=== PATIENT | male | born 1940 | race Caucasian/White ===

== ENCOUNTER 2020-01-16 13:25 | IRF | payer MEDICARE, SELFPAY ==
--- NOTE | ~2020-01-16 | XR_ITS ---
EXAMINATION: XR abdomen/kub 1V DATE: 01/23/2020 13:35 INDICATION: Abdominal pain. TECHNIQUE: A supine view of the abdomen was obtained. COMPARISON: None. FINDINGS: The rectum is distended and contains stool and contrast. There is contrast in diverticula o f the distal colon. The small bowel is normal in caliber. Wires overlying the chest and upper abdomen may be retained epicardial pacer wires. IMPRESSION: 1. Distended rectum containing stool. Reviewed, dictated and finalized at location A.
--- NOTE | 2020-01-16 13:59 | ADMGEN ---
Arrived via ambulance at 1325, alert with no complaints of pain of discomfort. This patient, Javier Nagy, was admitted to [facility] Room 219-02. Patient/family oriented to hospital policies and general routines including ID bracelet, bed and alarms, visiting hours, pain management, procedures, bathroom and other care routines, personal items, smoking policy, room service/diet, and visiting hours. Valuables list has been completed. Information on how to activate the Rapid Response Team has been discussed. Patient/Family are encouraged to report perceived risks to care and to ask questions if they do not understand what they are told or what they should do.
[2020-01-16 14:05] VITALS: BP 152/82; PULSE 74; RESP 20; TEMP 36; O2SAT 98; BMI 25.9
[2020-01-16] MEDS: ONDANSETRON HCL ODT 4 MG TABLET PO (15:11)
[2020-01-16 15:13] VITALS: BMI 25.9
[2020-01-16] MEDS: busPIRone HCL 5 MG TABLET PO (17:42)
[2020-01-16] MEDS: ATORVASTATIN 40 MG TABLET PO (20:01)
[2020-01-16 20:31] VITALS: BP 148/93; PULSE 64; RESP 20; TEMP 36.3; O2SAT 100
[2020-01-16 20:41] VITALS: O2SAT 94
[2020-01-17 05:09] LABS: Basophils Percent Auto 0.3 % (0.2-1.2); Eosinophils Absolute Auto 0.2 K/mm3 (0-0.3); Eosinophils Percent Auto 2.2 % (0-4.4); Hematocrit 44.2 % (42.0-52.0); Hemoglobin 14.7 g/dL (14.0-18.0); Immature Granulocyte Absolute 0.03 K/mm3 (0.00-0.031); Immature Granulocyte Percent A 0.3 % (0-0.5); Lymphocytes Absolute Auto 1.78 K/mm3 (0.9-3.2); Lymphocytes Percent Auto 18.8 % (18.3-44.2); Mean Corpuscular HGB Conc 33.3 g/dl (32-36); Mean Corpuscular Hemoglobin 31.7 pg (26-34); Mean Corpuscular Volume 95.3 fl (80-100); Mean Platelet Volume 11.9 fl (7.4-10.4); Monocytes Absolute Auto 1.4 K/mm3 (0.1-0.6); Monocytes Percent Auto 14.5 % (2.6-8.5); Neutrophils Percent Auto 63.9 % (45.5-73.1); Platelet Count Result 125 k/mm3 (150-375); Red Blood Count 4.64 M/mm3 (4.6-6.20); Red Cell Distribution Width 13.2 % (11.5-14.5); White Blood Count 9.5 K/mm3 (4.5-10.0)
[2020-01-17 05:22] LABS: Anion Gap 4 mmol/L (8-16); Blood Urea Nitrogen 16 mg/dL (9-20); Calcium 8.8 mg/dL (8.4-10.2); Carbon Dioxide 29 mmol/L (22-30); Chloride 103 mmol/L (98-107); Cholesterol 119 mg/dL (0-200); Estimated CRCL calculation 66 ml/min; Estimated Glomerular Filt Rate > 60; Glucose 124 mg/dL (75-110); HDL Direct 43 mg/dL; Potassium 3.7 mmol/L (3.4-5.0); Sodium 136 mmol/L (137-145); Triglycerides 56 mg/dL (<150)
[2020-01-17 05:33] LABS: LDL Cholesterol Direct 51 mg/dL
[2020-01-17 05:40] VITALS: BP 150/86; PULSE 68; RESP 18; TEMP 36.3; O2SAT 97
[2020-01-17] MEDS: ASPIRIN 325 MG TABLET PO (08:04)
[2020-01-17] MEDS: busPIRone HCL 5 MG TABLET PO ×2 (08:04→18:30)
[2020-01-17] MEDS: FINASTERIDE 5 MG TABLET PO (08:05)
--- NOTE | 2020-01-17 09:00 | WPDREHABHP ---
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 The patient is a 79-year-old right handed with prior medical history of atrial fibrillation, transient ischemic attack x2, severe aortic insufficiency, DVT, pulmonary embolism, osteoarthritis, sensory neuro hearing loss, cataracts and BPH presented to [facility] on January 14, 2020 via [facility] evacuation after being found down at 10:15 p.m. by police conducting a well check. The patient reported that he noticed this symptom onset at 8:30 a.m. while getting dressed. Patient reported his left side was weak and progress to the point that he could not move his left side. He attempted to leave the bathroom and fell, hitting his right eye were all, druze on the sink. He denies loss of consciousness and remained on the floor until he was found by emergency personnel. On arrival to the emergency the patient was hypertensive and NIHSS was 18. CT head showed no acute intracranial abnormality. CTA was negative for large vessel occlusion. He was not a candidate for tPA as he presented outside the window and with no large vessel occlusion he was not a candidate for thrombectomy either. MRI revealed multifocal acute infarcts in the right middle cerebral artery territory primarily involving the posterior right hines radiata and posterior limb of the internal capsule. There was also location managed FLAIR changes indicating a high risk are high risk for hemorrhagic conversion. TG in May showed an ejection fraction of 55 to 60%. He was continue on aspirin as soon a statin and was changed to add atorvastatin. Physical examination continues to reveal left-sided hemiparesis, decreased gross motor control, a decrease safety precautions or awareness, left facial droop and impaired balance. The patient was discharged to rehab on Lovenox for DVT prophylaxis however I see the patient is already started on Eliquis 5 milligram b.i.d. and the aspirin will discontinue on January 19, 2020 along with the other medications. The patient has not traveled outside the [place] or had contact with someone who is ill that has traveled outside the [place] in the past 21 days. Patient has not traveled to an area of the [place] that is experiencing no transmission of the Coronavirus and has not had close personal contact with anyone that has. The patient does not have a fever. The patient is not experiencing lower respiratory illness symptoms. Therapy was initiated at the acute care facility and the patient transferred to us from [facility] on January 16, 2020 on FALLS OR SURGERIES: The patient has had no major surgeries in the 100 days prior to admission. They had no falls in the past year. They had no falls with injury in the past year. PAST MEDICAL HISTORY: atrial fibrillation patient was on where of warfarin which has been switch her to Eliquis, transient ischemic attacks x2, severe aortic insufficiency (status post AVR and LA appendage ligation 2017) close DVT 2015, P right lower lobe 2017, migraines, osteoarthritis, sensory neural hearing loss cataracts and BPH PAST SURGICAL HISTORY: cardiac catheterization July 2017, bilateral carpal tunnel release 1989, loss copy April of 2016, repeat colonoscopy in October of 2019, trigger finger release December 2016, right hernia repair, ear surgery in 1969, bilateral total knee arthroplasty 1999 and TTE July of 2017 SOCIAL HISTORY: patient is lives alone. A never smoker rare alcohol use no illicit use of drugs lives an active lifestyle FAMILY HISTORY: esophageal cancer, lung cancer, coronary artery disease, throat cancer, myocardia
[2020-01-17 13:43] VITALS: BMI 25.9
[2020-01-17 14:00] VITALS: BP 127/78; PULSE 72; RESP 18; TEMP 36.8; O2SAT 96
[2020-01-17] MEDS: HYDROcodone/acetaminophen (*CRX) 5-325 MG TABLET 1 TAB PO (15:03)
[2020-01-17] MEDS: ATORVASTATIN 40 MG TABLET PO (19:59)
[2020-01-17 21:07] VITALS: BP 133/89; PULSE 63; RESP 20; TEMP 36.4; O2SAT 100
[2020-01-18 05:17] VITALS: BP 179/86; PULSE 60; RESP 18; TEMP 36.1; O2SAT 100
[2020-01-18] MEDS: ACETAMINOPHEN 325 MG TABLET 650 MG PO ×3 (07:39→23:07)
[2020-01-18] MEDS: ASPIRIN 325 MG TABLET PO (08:41)
[2020-01-18] MEDS: busPIRone HCL 5 MG TABLET PO ×2 (08:41→17:30)
[2020-01-18] MEDS: FINASTERIDE 5 MG TABLET PO (08:41)
[2020-01-18 09:14] VITALS: O2SAT 94
--- NOTE | 2020-01-18 10:10 | WPDNEURORHBP ---
Subjective Date/time seen: 01/18/20 10:10 Interval history: this 79-year-old gentleman is here after having had the right middle cerebral artery stroke related to most likely atrial fibrillation with significant left-sided hemiplegia left-sided nathalie sensory deficit and also probably a mild subtle but present visual field defect on the side he also has some cognitive dysfunction with short-term memory loss and repetitious asking the questions but quite pleasant denies any headache nausea vomiting chest pain shortness of breath fever chills sore throat Review of Systems Review of Systems: All systems reviewed & are unremarkable except as noted in HPI and below Functional Status Transfers Ability Ability to Transfer In/Out of Chair: Maximum Assistance X 2 Exam Const: General: comfortable and no acute distress HENMT: General nose exam: Normal nares present Mouth: Yes moist mucous membranes Eyes: General: appearance normal, both eyes and all related structures Neck: Neck: supple and no JVD Resp: Effort & Inspection: normal respiratory effort Auscultation: clear to auscultation bilaterally Cardio: Rate: regular rate Rhythm: regular rhythm GI: GI Palp: Yes Soft to palpation Auscultation: normal bowel sounds Skin: General skin exam: normal color and no rashes or lesions noted Neuro: Other: patient is awake and alert will oriented however clearly has cognitive deficits had left-sided hemiplegia and subtle left-sided visual field defect Extrem: General: normal to inspection Psych: Other: except the cognitive deficit the patient's affect is normal Objective Data Vital Signs Vital Signs: Vital Signs - 24 hr 01/17/20 14:00 01/17/20 21:07 01/18/20 05:17 Temperature 36.8 C 36.4 C 36.1 C L Pulse Rate 72 63 60 Respiratory Rate 18 18 Blood Pressure 127/78 133/89 179/86 H Pulse Oximetry 96 100 100 01/18/20 09:14 Temperature Pulse Rate Respiratory Rate Blood Pressure Pulse Oximetry 94 Intake/Output Intake/Output: Intake & Output 01/15/20 01/16/20 01/17/20 01/18/20 23:59 23:59 23:59 23:59 Intake Total 240 720 240 Balance 240 720 240 Meds/Results Medications: Active Medications Generic Name Dose Route Start Last Admin Trade Name Freq PRN Reason Stop Dose Admin Acetaminophen 650 mg 01/16/20 14:42 01/18/20 07:39 Tylenol Tablet PO 650 mg Q6H PRN Administration Pain 1-3 Hydrocodone Bitart/Acetaminophen 1 tab 01/16/20 14:42 01/17/20 15:03 [place] 5-325 Mg PO 1 tab Q6H PRN Administration Pain, Moderate Apixaban 5 mg 01/20/20 09:00 Eliquis PO BID ARSENIO Aspirin 325 mg 01/16/20 09:00 01/18/20 08:41 Aspirin PO 01/19/20 09:01 325 mg DAILY ARSENIO Administration Atorvastatin Calcium 40 mg 01/16/20 21:00 01/17/20 19:59 Lipitor PO 40 mg HS ARSENIO Administration Buspirone HCl 5 mg 01/16/20 17:00 01/18/20 08:41 Buspar PO 5 mg BID ARSENIO Administration Diltiazem HCl 120 mg 01/17/20 09:00 01/18/20 08:41 Cardizem Cd PO 120 mg DAILY ARSENIO Administration Finasteride 5 mg 01/17/20 09:00 01/18/20 08:41 Proscar PO 5 mg DAILY ARSENIO Administration Ondansetron HCl 4 mg 01/16/20 14:45 01/16/20 15:11 Zofran Odt PO 4 mg Q6H PRN Administration Nausea And Vomiting Progress Note: A&P Assessment and Plan (1) S/P left atrial appendage ligation: Code(s): Z98.890 - Other specified postprocedural states Status: Acute (2) S/P AVR: Code(s): Z95.2 - Presence of prosthetic heart valve Status: Acute (3) Atrial fibrillation: Code(s): I48.91 - Unspecified atrial fibrillation Status: Acute (4) Left hemiparesis: Code(s): G81.94 - Hemiplegia, unspecified affecting left nondominant side Status: Acute (5) Stroke: Code(s): I63.9 - Cerebral infarction, unspecified Status: Acute Additional Plan we will continue the physical therapy of compression th
--- NOTE | 2020-01-18 13:10 | RPD ---
INDIVIDUALIZED PLAN OF CARE FOR Javier Nagy Brief Synthesis of Pre-Admission Screen, Post-Admission Evaluation and Therapy Evaluations: The patient presents to rehab with a right MCA stroke. Comorbidities include CVA, TIA, Migraines, Hypertension, overactive bladder, benign prostatic hyperplasia, CHF with valve replacement 2018, atrial fibrillation, arthritis, and aortic valve disorder. The complexity of the patient's medical management, nursing, and therapy needs require an inpatient rehab hospital stay with a physician-led interdisciplinary team approach. The patient?s needs will be best met in an intensive program vs. at a lower level of care. The patient requires physician services for neurology services, medical oversight, and coordination of care. Emotional needs will be monitored as depression is a common sequelae of stroke. The patient requires nursing services for frequent neuro checks, anticoagulation therapy, medication management and education, pressure relief and skin care management, monitoring of labs, and fall/safety precautions. Deficits include:ADLs, Balance, Cognition, Endurance, Family Training/Education, Mobility, Pain Management, ROM, Safety, and Strength. Mica Splitter/Case Management for: Discharge Planning and Patient/Family Counseling Physical Therapy: 5 days per week for 60 minutes. Treatments may include: Therapeutic Exercise, Gait Training, Neuromuscular Re-education, Transfer Training, Community Reintegration, Bed Mobility, Patient/Family Education, Wheelchair Mobility Group Therapy/Concurrent Therapy Rationales: -Improve attention span during functional activities in a distracted environment. -Enhance problem solving and/or adequate judgment skills during functional activities in a distracted environment. -Promote increased safety awareness in a distracted environment to reduce fall risk with functional tasks, transfers, and ambulation to allow a more safe, self-sufficient return to the home environment. -Improve dynamic balance skills to promote safety and independence with functional activities in a distracted environment for maximum gain. Occupational Therapy: 5 days per week for 60 minutes. Treatments may include: Therapeutic Exercise, Therapeutic Activity, Cognitive Training, Self-Care Transfer Training, Community Reintegration, Home Management, Patient/Family Education, Wheelchair Mobility Training, Energy Conservation Training Group Therapy/Concurrent Therapy Rationales: -Allow therapist to observe and teach generalization and carry-over of skills learned in individual therapy. -Enhance problem solving and sequencing skills during therapeutic activities in a distracted environment. -Promote increased safety awareness in a realistic setting to reduce fall risk with functional tasks due to visual and verbal distractions. -Increase functional level with ADLs, ADL transfers and use of adaptive equipment through therapeutic activities with others while promoting safety to allow a more safe, self-sufficient return home. Speech Therapy: 5 days per week for 60 minutes. Treatments may include: Dysphasia Therapy, Speech/Language/Communication Therapy, Cognitive Training, Patient/Family Education Group Therapy/Concurrent Therapy - Rationale: -Allow therapist to observe and teach generalization and carry-over of skills learned in individual therapy. -Improve comprehension skills with complex or abstract ideas through discussion in a realistic setting. -Enhance problem solving skills with complex issues during activities in a distracted environment. -Promote increased memory skills and concentration in a distracted environment for a safe transition home. -Improve attention and focus with language/communication skills in a realistic and supportive therapeutic setting. -Allow for practice of expression of basic needs and ideas through functional activities with others. Medical Prognosis: Good Anticipated Length of Stay: 12 days Reha
[2020-01-18 14:00] VITALS: BP 148/92; PULSE 68; RESP 16; TEMP 36.6; O2SAT 100
[2020-01-18] MEDS: ATORVASTATIN 40 MG TABLET PO (20:25)
[2020-01-18 22:00] VITALS: BP 144/88; PULSE 69; RESP 16; TEMP 36.3; O2SAT 97
[2020-01-18] MEDS: ONDANSETRON HCL ODT 4 MG TABLET PO (23:00)
[2020-01-19] VITALS (7 sets, daily range): BP systolic 124–142; BP diastolic 72–79; PULSE 62–71; RESP 16–20; TEMP 36.3–36.6; O2SAT 94–98
[2020-01-19] MEDS: HYDROcodone/acetaminophen (*CRX) 5-325 MG TABLET 1 TAB PO (01:24)
[2020-01-19] MEDS: ONDANSETRON HCL ODT 4 MG TABLET PO ×2 (05:40→21:38)
[2020-01-19] MEDS: FINASTERIDE 5 MG TABLET PO (08:38)
[2020-01-19] MEDS: polyethylene glycoL 3350 17 GM POWD.PACK PO (08:38)
[2020-01-19] MEDS: ASPIRIN 325 MG TABLET PO (08:38)
[2020-01-19] MEDS: busPIRone HCL 5 MG TABLET PO ×2 (08:39→17:41)
[2020-01-19] MEDS: MELATONIN 5 MG TABLET PO (20:20)
[2020-01-19] MEDS: ATORVASTATIN 40 MG TABLET PO (20:20)
[2020-01-20 05:16] VITALS: BP 131/75; PULSE 65; RESP 18; TEMP 36.6; O2SAT 100
[2020-01-20] MEDS: APIXABAN 5 MG TABLET PO ×2 (08:37→17:13)
[2020-01-20] MEDS: polyethylene glycoL 3350 17 GM POWD.PACK PO (08:37)
[2020-01-20] MEDS: busPIRone HCL 5 MG TABLET PO ×2 (08:37→17:13)
[2020-01-20] MEDS: FINASTERIDE 5 MG TABLET PO (08:37)
[2020-01-20 08:44] VITALS: PULSE 64; RESP 18; O2SAT 100
[2020-01-20] MEDS: ONDANSETRON HCL ODT 4 MG TABLET PO (11:08)
[2020-01-20 13:00] VITALS: BP 119/76; PULSE 68; O2SAT 92
--- NOTE | 2020-01-20 17:14 | WPDNEURORHBP ---
Subjective Date/time seen: 01/20/20 17:14 Interval history: This 79-year-old gentleman is here after having had stroke and the left-sided almost hemiplegia which is slightly improving the complains of diplopia earlier in the morning which has resolved without any headache nausea vomiting chest pain shortness of breath fever chills sore throat is also complaining of insomnia Review of Systems Review of Systems: All systems reviewed & are unremarkable except as noted in HPI and below Functional Status Transfers Ability Ability to Transfer In/Out of Chair: Maximum Assistance X 2 Exam Const: General: comfortable and no acute distress HENMT: General nose exam: Normal nares present Mouth: Yes moist mucous membranes Eyes: General: appearance normal, both eyes and all related structures Neck: Neck: supple and no JVD Resp: Effort & Inspection: normal respiratory effort Auscultation: clear to auscultation bilaterally Cardio: Rate: regular rate Rhythm: regular rhythm GI: GI Palp: Yes Soft to palpation Auscultation: normal bowel sounds Skin: General skin exam: normal color and no rashes or lesions noted Neuro: Other: patient remains awake alert well oriented not any distress left-sided hemiplegia slowly improving particularly the left leg he has moved will able to move across the bed there is no sign of extraocular movement disturbance Extrem: General: normal to inspection Psych: Mental Status: mental status grossly normal Objective Data Vital Signs Vital Signs: Vital Signs - 24 hr 01/19/20 20:00 01/19/20 21:25 01/19/20 21:39 Temperature 36.4 C L Pulse Rate 70 Respiratory Rate 20 Blood Pressure 126/78 Pulse Oximetry 98 96 98 01/20/20 05:16 01/20/20 08:44 01/20/20 13:00 Temperature 36.6 C Pulse Rate 65 64 68 Respiratory Rate 18 18 Blood Pressure 131/75 119/76 Pulse Oximetry 100 100 92 Intake/Output Intake/Output: Intake & Output 01/17/20 01/18/20 01/19/20 01/20/20 23:59 23:59 23:59 23:59 Intake Total 720 720 600 480 Balance 720 720 600 480 Meds/Results Medications: Active Medications Generic Name Dose Route Start Last Admin Trade Name Freq PRN Reason Stop Dose Admin Acetaminophen 650 mg 01/16/20 14:42 01/18/20 23:07 Tylenol Tablet PO 650 mg Q6H PRN Administration Pain 1-3 Hydrocodone Bitart/Acetaminophen 1 tab 01/16/20 14:42 01/19/20 01:24 [place] 5-325 Mg PO 1 tab Q6H PRN Administration Pain, Moderate Apixaban 5 mg 01/20/20 09:00 01/20/20 17:13 Eliquis PO 5 mg BID ARSENIO Administration Atorvastatin Calcium 40 mg 01/16/20 21:00 01/19/20 20:20 Lipitor PO 40 mg HS ARSENIO Administration Buspirone HCl 5 mg 01/16/20 17:00 01/20/20 17:13 Buspar PO 5 mg BID ARSENIO Administration Diltiazem HCl 120 mg 01/17/20 09:00 01/20/20 08:37 Cardizem Cd PO 120 mg DAILY ARSENIO Administration Finasteride 5 mg 01/17/20 09:00 01/20/20 08:37 Proscar PO 5 mg DAILY ARSENIO Administration Melatonin 5 mg 01/19/20 21:00 01/19/20 20:20 Melatonin PO 5 mg HS ARSENIO Administration Ondansetron HCl 4 mg 01/16/20 14:45 01/20/20 11:08 Zofran Odt PO 4 mg Q6H PRN Administration Nausea And Vomiting Polyethylene Glycol 17 gm 01/19/20 09:00 01/20/20 08:37 Miralax PO 17 gm QAM ARSENIO Administration Progress Note: A&P Assessment and Plan (1) S/P left atrial appendage ligation: Code(s): Z98.890 - Other specified postprocedural states Status: Acute (2) S/P AVR: Code(s): Z95.2 - Presence of prosthetic heart valve Status: Acute (3) Atrial fibrillation: Code(s): I48.91 - Unspecified atrial fibrillation Status: Acute (4) Left hemiparesis: Code(s): G81.94 - Hemiplegia, unspecified affecting left nondominant side Status: Acute (5) Stroke: Code(s): I63.9 - Cerebral infarction, unspecified Status: Acute Additional Plan we will phyllis
[2020-01-20 20:00] VITALS: O2SAT 94
[2020-01-20] MEDS: ATORVASTATIN 40 MG TABLET PO (20:07)
[2020-01-20] MEDS: MELATONIN 5 MG TABLET PO (20:07)
[2020-01-20] MEDS: ACETAMINOPHEN 325 MG TABLET 650 MG PO (21:21)
[2020-01-20 21:35] VITALS: BP 111/79; PULSE 72; RESP 16; TEMP 36.2; O2SAT 94
[2020-01-21 05:47] VITALS: BP 133/65; PULSE 62; RESP 16; TEMP 36.1; O2SAT 98
[2020-01-21] MEDS: ONDANSETRON HCL ODT 4 MG TABLET PO (05:52)
[2020-01-21] MEDS: busPIRone HCL 5 MG TABLET PO ×2 (08:20→16:06)
[2020-01-21] MEDS: APIXABAN 5 MG TABLET PO ×2 (08:20→16:06)
[2020-01-21] MEDS: polyethylene glycoL 3350 17 GM POWD.PACK PO (08:20)
[2020-01-21] MEDS: FINASTERIDE 5 MG TABLET PO (08:20)
--- NOTE | 2020-01-21 10:19 | WPDNEURORHBP ---
Subjective Date/time seen: 01/21/20 10:19 79 years old admitted to the acute rehab with left hemiplegia along with diplopia at this particular time has no specific complaints except he has difficulties in moving the bowels though he is receiving MiraLax scheduled. Review of Systems Review of Systems: All systems reviewed & are unremarkable except as noted in HPI and below Functional Status Transfers Ability Ability to Transfer In/Out of Chair: Maximum Assistance X 2 Exam Narrative: Exam Narrative: on examination today he is awake alert with normal and full speech in no obvious acute distress ear nose throat examination normal with no evidence of obvious oral or nasal drainage eyes normal neck is supple with full range of motions respiration clear with no rhonchi or crepitations heart regular with no murmur abdomen is soft with normal bowel sounds no tenderness neurological examination reveals him to be awake alert with obvious left-sided hemiplegia hyperreflexia upgoing left plantar response at this stage there is no evidence of extraocular movements abnormalities Objective Data Vital Signs Vital Signs: Vital Signs - 24 hr 01/20/20 13:00 01/20/20 20:00 01/20/20 21:35 Temperature 36.2 C L Pulse Rate 68 72 Respiratory Rate 16 Blood Pressure 119/76 111/79 Pulse Oximetry 92 94 94 01/21/20 05:47 Temperature 36.1 C L Pulse Rate 62 Respiratory Rate 16 Blood Pressure 133/65 Pulse Oximetry 98 Intake/Output Intake/Output: Intake & Output 01/18/20 01/19/20 01/20/20 01/21/20 23:59 23:59 23:59 23:59 Intake Total 720 600 720 240 Balance 720 600 720 240 Meds/Results Medications: Active Medications Generic Name Dose Route Start Last Admin Trade Name Freq PRN Reason Stop Dose Admin Acetaminophen 650 mg 01/16/20 14:42 01/20/20 21:21 Tylenol Tablet PO 650 mg Q6H PRN Administration Pain 1-3 Hydrocodone Bitart/Acetaminophen 1 tab 01/16/20 14:42 01/19/20 01:24 [place] 5-325 Mg PO 1 tab Q6H PRN Administration Pain, Moderate Apixaban 5 mg 01/20/20 09:00 01/21/20 08:20 Eliquis PO 5 mg BID ARSENIO Administration Atorvastatin Calcium 40 mg 01/16/20 21:00 01/20/20 20:07 Lipitor PO 40 mg HS ARSENIO Administration Buspirone HCl 5 mg 01/16/20 17:00 01/21/20 08:20 Buspar PO 5 mg BID ARSENIO Administration Diltiazem HCl 120 mg 01/17/20 09:00 01/21/20 08:19 Cardizem Cd PO 120 mg DAILY ARSENIO Administration Finasteride 5 mg 01/17/20 09:00 01/21/20 08:20 Proscar PO 5 mg DAILY ARSENIO Administration Melatonin 5 mg 01/19/20 21:00 01/20/20 20:07 Melatonin PO 5 mg HS ARSENIO Administration Ondansetron HCl 4 mg 01/16/20 14:45 01/21/20 05:52 Zofran Odt PO 4 mg Q6H PRN Administration Nausea And Vomiting Polyethylene Glycol 17 gm 01/19/20 09:00 01/21/20 08:20 Miralax PO 17 gm QAM ARSENIO Administration Progress Note: A&P Assessment and Plan (1) S/P left atrial appendage ligation: Code(s): Z98.890 - Other specified postprocedural states Status: Acute (2) S/P AVR: Code(s): Z95.2 - Presence of prosthetic heart valve Status: Acute (3) Atrial fibrillation: Code(s): I48.91 - Unspecified atrial fibrillation Status: Acute (4) Left hemiparesis: Code(s): G81.94 - Hemiplegia, unspecified affecting left nondominant side Status: Acute (5) Stroke: Code(s): I63.9 - Cerebral infarction, unspecified Status: Acute Additional Plan management is being continued as such.
[2020-01-21 14:00] VITALS: BP 123/88; PULSE 75; RESP 18; TEMP 36.5; O2SAT 97
[2020-01-21] MEDS: MELATONIN 5 MG TABLET PO (20:33)
[2020-01-21] MEDS: ATORVASTATIN 40 MG TABLET PO (20:33)
[2020-01-21 22:00] VITALS: BP 131/81; PULSE 65; RESP 18; TEMP 36.2; O2SAT 97
[2020-01-22 06:00] VITALS: BP 162/89; PULSE 84; RESP 18; TEMP 36.6; O2SAT 93
[2020-01-22] MEDS: polyethylene glycoL 3350 17 GM POWD.PACK PO (09:25)
[2020-01-22] MEDS: FINASTERIDE 5 MG TABLET PO (09:25)
[2020-01-22] MEDS: busPIRone HCL 5 MG TABLET PO ×2 (09:25→17:06)
[2020-01-22] MEDS: APIXABAN 5 MG TABLET PO ×2 (09:25→17:06)
--- NOTE | 2020-01-22 13:07 | PCDIET ---
Nutrition Follow-Up Complete: Nutrition Diagnosis: Predicted suboptimal oral intake related to recent CVA as evidenced by patient statements, reported decreased appetite. Nutrition Goal: Patient to consume 75% of meals or greater. Goal met. Average intake from last review was 77% of recorded meals on regular diet. Patient eating light lunch of soup and crackers due to c/o constipation. Reports refusing magnesium citrate. RN has order for enema. Last recorded weight is 86.8 kg. Recommend obtaining new weight. Bowel Motility: Last documented BM on 01/17/20. Labs Reviewed: No new labs available. Meds Noted: [place], Miralax, Zofran Additional Notes: Abrasions noted, but no open wounds documented. Will continue to monitor with same goal. Nutrition Monitoring and Evaluation: Follow up in 5 days.
[2020-01-22 14:00] VITALS: BP 137/76; PULSE 86; RESP 18; TEMP 36.6; O2SAT 97
--- NOTE | 2020-01-22 14:38 | WPDNEURORHBP ---
Subjective Date/time seen: 01/22/20 14:38 Interval history: this 79-year-old gentleman is here with stroke with left-sided almost hemiplegia he is complaining of constipation and we have to change different medication according to his need otherwise is stable denies any headache nausea vomiting chest pain shortness of breath fever chills sore throat Review of Systems Review of Systems: All systems reviewed & are unremarkable except as noted in HPI and below Functional Status Ambulation Ability Ambulation Assistive Devices: Parallel Bars Transfers Ability Ability to Transfer In/Out of Chair: Maximum Assistance X 2 Exam Const: General: comfortable and no acute distress HENMT: General nose exam: Normal nares present Mouth: Yes moist mucous membranes Eyes: General: appearance normal, both eyes and all related structures Neck: Neck: supple and no JVD Resp: Effort & Inspection: normal respiratory effort Auscultation: clear to auscultation bilaterally Cardio: Rate: regular rate Rhythm: regular rhythm GI: GI Palp: Yes Soft to palpation Auscultation: normal bowel sounds Skin: General skin exam: normal color and no rashes or lesions noted Neuro: Other: patient is awake alert well oriented denies any headache nausea vomiting chest pain shortness of breath left-sided hemiplegia has some improvement otherwise overall picture is stable Extrem: General: normal to inspection Psych: Mental Status: mental status grossly normal Objective Data Vital Signs Vital Signs: Vital Signs - 24 hr 01/21/20 22:00 01/22/20 06:00 01/22/20 14:00 Temperature 36.2 C L 36.6 C 36.6 C Pulse Rate 65 84 86 Respiratory Rate 18 18 18 Blood Pressure 131/81 162/89 H 137/76 Pulse Oximetry 97 93 97 Intake/Output Intake/Output: Intake & Output 01/19/20 01/20/20 01/21/20 01/22/20 23:59 23:59 23:59 23:59 Intake Total 600 720 720 480 Balance 600 720 720 480 Meds/Results Medications: Active Medications Generic Name Dose Route Start Last Admin Trade Name Freq PRN Reason Stop Dose Admin Acetaminophen 650 mg 01/16/20 14:42 01/20/20 21:21 Tylenol Tablet PO 650 mg Q6H PRN Administration Pain 1-3 Hydrocodone Bitart/Acetaminophen 1 tab 01/16/20 14:42 01/19/20 01:24 [place] 5-325 Mg PO 1 tab Q6H PRN Administration Pain, Moderate Apixaban 5 mg 01/20/20 09:00 01/22/20 09:25 Eliquis PO 5 mg BID ARSENIO Administration Atorvastatin Calcium 40 mg 01/16/20 21:00 01/21/20 20:33 Lipitor PO 40 mg HS ARSENIO Administration Buspirone HCl 5 mg 01/16/20 17:00 01/22/20 09:25 Buspar PO 5 mg BID ARSENIO Administration Diltiazem HCl 120 mg 01/17/20 09:00 01/22/20 09:25 Cardizem Cd PO 120 mg DAILY ARSENIO Administration Finasteride 5 mg 01/17/20 09:00 01/22/20 09:25 Proscar PO 5 mg DAILY ARSENIO Administration Lactulose 30 gm 01/22/20 13:28 Lactulose PO QAM PRN Constipation Melatonin 5 mg 01/19/20 21:00 01/21/20 20:33 Melatonin PO 5 mg HS ARSENIO Administration Ondansetron HCl 4 mg 01/16/20 14:45 01/21/20 05:52 Zofran Odt PO 4 mg Q6H PRN Administration Nausea And Vomiting Polyethylene Glycol 17 gm 01/19/20 09:00 01/22/20 09:25 Miralax PO 17 gm QAM ARSENIO Administration Progress Note: A&P Assessment and Plan (1) Constipation: Code(s): K59.00 - Constipation, unspecified Status: Acute (2) S/P left atrial appendage ligation: Code(s): Z98.890 - Other specified postprocedural states Status: Acute (3) S/P AVR: Code(s): Z95.2 - Presence of prosthetic heart valve Status: Acute (4) Atrial fibrillation: Code(s): I48.91 - Unspecified atrial fibrillation Status: Acute (5) Left hemiparesis: Code(s): G81.94 - Hemiplegia, unspecified affecting left nondominant side Status: Acute (6) Stroke: Code(s): I63.9 - Cerebral infarction, unspecified Status: Acu
[2020-01-22] MEDS: LACTULOSE 20 GM/30 ML UDC 30 GM PO (15:36)
[2020-01-22] MEDS: ONDANSETRON HCL ODT 4 MG TABLET PO (17:19)
[2020-01-22 20:00] VITALS: PULSE 86; RESP 18; O2SAT 97
[2020-01-22] MEDS: MELATONIN 5 MG TABLET PO (20:14)
[2020-01-22] MEDS: ATORVASTATIN 40 MG TABLET PO (20:14)
[2020-01-22 22:00] VITALS: BP 136/98; PULSE 79; RESP 20; TEMP 36.3; O2SAT 93
[2020-01-23] MEDS: ACETAMINOPHEN 325 MG TABLET 650 MG PO ×2 (03:10→17:27)
[2020-01-23 05:46] VITALS: BP 137/71; PULSE 73; RESP 20; TEMP 36.4; O2SAT 94
[2020-01-23] MEDS: polyethylene glycoL 3350 17 GM POWD.PACK PO (09:08)
[2020-01-23] MEDS: FINASTERIDE 5 MG TABLET PO (09:08)
[2020-01-23] MEDS: busPIRone HCL 5 MG TABLET PO ×2 (09:08→17:28)
[2020-01-23] MEDS: LACTULOSE 20 GM/30 ML UDC 30 GM PO (09:08)
[2020-01-23] MEDS: APIXABAN 5 MG TABLET PO ×2 (09:08→17:28)
[2020-01-23 10:59] LABS: Add Urine Microscopic? YES; Appearance Urine Clear (Clear); Bilirubin Urine Negative (Negative); Blood Urine Negative (Negative); Color Urine Yellow (Yellow); Glucose Urine UA Negative (Negative); Ketones Urine Negative (Negative); Leukocyte Esterase Ur Negative LEU/UL (Negative); Mucus Urine Few /lpf; Nitrate Urine Negative (Negative); Protein Urine Negative (Negative); Specific Grav Ur 1.023 (1.001-1.035)
--- NOTE | 2020-01-23 11:36 | WPDNEURORHBP ---
Subjective Date/time seen: 01/23/20 11:36 Interval history: this 79-year-old gentleman is here status post stroke with left-sided significant hemiparesis patient did urinate today and it has been sent for urinalysis with reflex culture has been complaining of constipation and is asking for a suppository he certainly has is own way of dealing with his constipation at times refusing the enema times refusing the therapy we recommend in any event I will abide by his vision give him Dulcolax suppository to see if it makes a difference Beside the constipation the patient denies any headache nausea vomiting chest pain shortness of breath fever chills sore throat Review of Systems Review of Systems: All systems reviewed & are unremarkable except as noted in HPI and below Functional Status Ambulation Ability Ambulation Assistive Devices: Parallel Bars Transfers Ability Ability to Transfer In/Out of Chair: Maximum Assistance X 2 Exam Const: General: comfortable and no acute distress HENMT: General nose exam: Normal nares present Mouth: Yes moist mucous membranes Eyes: General: appearance normal, both eyes and all related structures Neck: Neck: supple and no JVD Resp: Effort & Inspection: normal respiratory effort Auscultation: clear to auscultation bilaterally Cardio: Rate: regular rate Rhythm: regular rhythm GI: GI Palp: Yes Soft to palpation Auscultation: normal bowel sounds Skin: General skin exam: normal color and no rashes or lesions noted Neuro: Other: patient is awake alert well oriented time place and person has significant weakness of the left upper and the lower extremity which is slowly improving however Extrem: General: normal to inspection Psych: Mental Status: mental status grossly normal Objective Data Vital Signs Vital Signs: Vital Signs - 24 hr 01/22/20 14:00 01/22/20 20:00 01/22/20 22:00 Temperature 36.6 C 36.3 C L Pulse Rate 86 86 79 Respiratory Rate 18 18 20 Blood Pressure 137/76 136/98 H Pulse Oximetry 97 97 93 01/23/20 05:46 Temperature 36.4 C Pulse Rate 73 Respiratory Rate 20 Blood Pressure 137/71 Pulse Oximetry 94 Intake/Output Intake/Output: Intake & Output 01/20/20 01/21/20 01/22/20 01/23/20 23:59 23:59 23:59 23:59 Intake Total 720 720 720 Balance 720 720 720 Meds/Results Medications: Active Medications Generic Name Dose Route Start Last Admin Trade Name Andrea PRN Reason Stop Dose Admin Acetaminophen 650 mg 01/16/20 14:42 01/23/20 03:10 Tylenol Tablet PO 650 mg Q6H PRN Administration Pain 1-3 Hydrocodone Bitart/Acetaminophen 1 tab 01/16/20 14:42 01/19/20 01:24 [place] 5-325 Mg PO 1 tab Q6H PRN Administration Pain, Moderate Apixaban 5 mg 01/20/20 09:00 01/23/20 09:08 Eliquis PO 5 mg BID ARSENIO Administration Atorvastatin Calcium 40 mg 01/16/20 21:00 01/22/20 20:14 Lipitor PO 40 mg HS ARSENIO Administration Buspirone HCl 5 mg 01/16/20 17:00 01/23/20 09:08 Buspar PO 5 mg BID ARSENIO Administration Diltiazem HCl 120 mg 01/17/20 09:00 01/23/20 09:08 Cardizem Cd PO 120 mg DAILY ARSENIO Administration Finasteride 5 mg 01/17/20 09:00 01/23/20 09:08 Proscar PO 5 mg DAILY ARSENIO Administration Lactulose 30 gm 01/22/20 13:28 01/23/20 09:08 Lactulose PO 30 gm QAM PRN Administration Constipation Melatonin 5 mg 01/19/20 21:00 01/22/20 20:14 Melatonin PO 5 mg HS ARSENIO Administration Ondansetron HCl 4 mg 01/16/20 14:45 01/22/20 17:19 Zofran Odt PO 4 mg Q6H PRN Administration Nausea And Vomiting Polyethylene Glycol 17 gm 01/19/20 09:00 01/23/20 09:08 Miralax PO 17 gm QAM ARSENIO Administration Labs Labs: Laboratory Results - last 24 hr 01/23/20 10:34 Urine Color Yellow Urine Appearance Clear Urine pH 5.0 Ur Specific [place] 1.023 Urine Protein Negative Urine Glucose (UA) Negative Urine Ketones Negative Ur Blood (Man) Ne
[2020-01-23] MEDS: BISACODYL 10 MG SUPPOSITORY RECTAL (13:21)
[2020-01-23 14:00] VITALS: BP 151/78; PULSE 95; RESP 18; TEMP 35.4; O2SAT 90
--- NOTE | 2020-01-23 15:23 | PC.NURSE ---
Had large amount of stool in rectum per KUB; and also received 1 time dose of suppository; having cramping from earlier medications. Put on toilet because of no success on bedpan and was immediately able to have very xxxlarge BM and stated felt much better.
[2020-01-23 20:00] VITALS: O2SAT 98
[2020-01-23 22:00] VITALS: BP 116/77; PULSE 76; RESP 20; TEMP 36.6; O2SAT 98
[2020-01-23] MEDS: MELATONIN 5 MG TABLET PO (22:05)
[2020-01-23] MEDS: DOCUSATE SODIUM 100 MG CAPSULE PO (22:05)
[2020-01-23] MEDS: ATORVASTATIN 40 MG TABLET PO (22:05)
[2020-01-24 05:20] LABS: Basophils Absolute Auto 0.1 K/mm3 (0.0-0.1); Basophils Percent Auto 0.6 % (0.2-1.2); Eosinophils Absolute Auto 0.3 K/mm3 (0-0.3); Eosinophils Percent Auto 3.2 % (0-4.4); Hematocrit 40.7 % (42.0-52.0); Hemoglobin 13.6 g/dL (14.0-18.0); Immature Granulocyte Absolute 0.03 K/mm3 (0.00-0.031); Immature Granulocyte Percent A 0.3 % (0-0.5); Lymphocytes Absolute Auto 2.58 K/mm3 (0.9-3.2); Lymphocytes Percent Auto 25.6 % (18.3-44.2); Mean Corpuscular HGB Conc 33.4 g/dl (32-36); Mean Corpuscular Hemoglobin 31.1 pg (26-34); Mean Corpuscular Volume 93.1 fl (80-100); Mean Platelet Volume 11.6 fl (7.4-10.4); Monocytes Absolute Auto 1.1 K/mm3 (0.1-0.6); Monocytes Percent Auto 11.1 % (2.6-8.5); Neutrophils Percent Auto 59.2 % (45.5-73.1); Platelet Count Result 198 k/mm3 (150-375); Red Blood Count 4.37 M/mm3 (4.6-6.20); Red Cell Distribution Width 12.5 % (11.5-14.5); White Blood Count 10.1 K/mm3 (4.5-10.0)
[2020-01-24 05:34] LABS: Anion Gap 4 mmol/L (8-16); Blood Urea Nitrogen 18 mg/dL (9-20); Calcium 9.2 mg/dL (8.4-10.2); Carbon Dioxide 32 mmol/L (22-30); Chloride 101 mmol/L (98-107); Estimated CRCL calculation 60 ml/min; Estimated Glomerular Filt Rate > 60; Glucose 104 mg/dL (75-110); Potassium 3.8 mmol/L (3.4-5.0); Sodium 137 mmol/L (137-145)
[2020-01-24 05:49] VITALS: BP 133/78; PULSE 70; RESP 18; TEMP 36.6; O2SAT 94
[2020-01-24] MEDS: APIXABAN 5 MG TABLET PO ×2 (09:40→18:42)
[2020-01-24] MEDS: FINASTERIDE 5 MG TABLET PO (09:41)
[2020-01-24] MEDS: polyethylene glycoL 3350 17 GM POWD.PACK PO (09:41)
[2020-01-24] MEDS: busPIRone HCL 5 MG TABLET PO ×2 (09:41→18:42)
[2020-01-24] MEDS: DOCUSATE SODIUM 100 MG CAPSULE PO ×2 (09:41→21:08)
--- NOTE | 2020-01-24 11:43 | PCDIET ---
Nutrition Follow-Up Complete: Nutrition Diagnosis: Predicted suboptimal oral intake related to recent CVA as evidenced by patient statements, reported decreased appetite. Nutrition Goal: Patient to consume 75% of meals or greater. Goal not met. Average intake from 01/23/20 was 44% of recorded meals. Recommend adding Ensure Enlive (350kcal, 20g protein) 1x daily and continuing regular, unrestricted diet. Last recorded weight is 86.8 kg. Recommend obtaining new weight. Bowel Motility: +BM on 01/23/20 with scant BM today - patient refused enema and magnesium citrate previously but has been taking Colace, Miralax and Lactulose Labs Reviewed: Hgb (13.6), Hct (40.7) Meds Noted: Colace, Lactulose, Miralax Additional Notes: No documented pressure sores. Will continue to monitor with same goal. Nutrition Monitoring and Evaluation: Follow up in 5 days.
[2020-01-24 14:00] VITALS: BP 142/82; PULSE 82; RESP 20; TEMP 36.7; O2SAT 99
[2020-01-24 20:00] VITALS: O2SAT 99
[2020-01-24] MEDS: MELATONIN 5 MG TABLET PO (21:08)
[2020-01-24] MEDS: ATORVASTATIN 40 MG TABLET PO (21:08)
[2020-01-24 22:00] VITALS: BP 146/60; PULSE 68; RESP 14; TEMP 36.7; O2SAT 93
[2020-01-24] MEDS: ONDANSETRON HCL ODT 4 MG TABLET PO (22:02)
[2020-01-25] MEDS: HYDROcodone/acetaminophen (*CRX) 5-325 MG TABLET 1 TAB PO ×2 (00:53→23:55)
[2020-01-25 06:00] VITALS: BP 120/71; PULSE 64; RESP 12; TEMP 36.3; O2SAT 99
[2020-01-25] MEDS: MENTHOL 10% / METHYL SALICYLATE 15% 57 GM TUBE 1 APPLIC TOPICAL (06:54)
--- NOTE | 2020-01-25 07:54 | PCPTNOTE ---
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 The slide board will resolve patient's mobility limitations and will be used for ADL's within the home. The patient can safely use the slide board. ?The slide board will resolve the patient?s mobility deficits, including impaired balance, decreased strength and decreased endurance.
[2020-01-25] MEDS: DOCUSATE SODIUM 100 MG CAPSULE PO ×2 (09:19→20:06)
[2020-01-25] MEDS: busPIRone HCL 5 MG TABLET PO ×2 (09:19→17:28)
[2020-01-25] MEDS: FINASTERIDE 5 MG TABLET PO (09:19)
[2020-01-25] MEDS: polyethylene glycoL 3350 17 GM POWD.PACK PO (09:19)
[2020-01-25] MEDS: APIXABAN 5 MG TABLET PO ×2 (09:19→17:28)
--- NOTE | 2020-01-25 11:17 | WPDNEURORHBP ---
Subjective Date/time seen: 01/25/20 11:17 Interval history: this very pleasant 79-year-old is here after having had a stroke which has left him with left-sided almost hemiplegia he slowly improving denies any new complaints denies any headache nausea vomiting chest pain or shortness of breath he has taken 4 steps today and feeling good about it Review of Systems Review of Systems: All systems reviewed & are unremarkable except as noted in HPI and below Functional Status Ambulation Ability Ambulation Assistive Devices: Parallel Bars Transfers Ability Ability to Transfer In/Out of Chair: Maximum Assistance X 2 Exam Const: General: comfortable and no acute distress HENMT: General nose exam: Normal nares present Mouth: Yes moist mucous membranes Eyes: General: appearance normal, both eyes and all related structures Neck: Neck: supple and no JVD Resp: Effort & Inspection: normal respiratory effort Auscultation: clear to auscultation bilaterally Cardio: Rate: regular rate Rhythm: regular rhythm GI: GI Palp: Yes Soft to palpation Auscultation: normal bowel sounds Skin: General skin exam: normal color and no rashes or lesions noted Neuro: Other: patient is awake and alert well oriented time place and person normal speech and language function normal cranial examination however significant left-sided weakness needing assistance in all the activities of daily living Extrem: General: normal to inspection Psych: Mental Status: mental status grossly normal Objective Data Vital Signs Vital Signs: Vital Signs - 24 hr 01/24/20 14:00 01/24/20 20:00 01/24/20 22:00 Temperature 36.7 C 36.7 C Pulse Rate 82 68 Respiratory Rate 20 14 Blood Pressure 142/82 H 146/60 H Pulse Oximetry 99 99 93 01/25/20 06:00 Temperature 36.3 C L Pulse Rate 64 Respiratory Rate 12 Blood Pressure 120/71 Pulse Oximetry 99 Intake/Output Intake/Output: Intake & Output 01/22/20 01/23/20 01/24/20 01/25/20 23:59 23:59 23:59 23:59 Intake Total 720 240 480 240 Balance 720 240 480 240 Meds/Results Medications: Active Medications Generic Name Dose Route Start Last Admin Trade Name Freq PRN Reason Stop Dose Admin Acetaminophen 650 mg 01/16/20 14:42 01/23/20 17:27 Tylenol Tablet PO 650 mg Q6H PRN Administration Pain 1-3 Hydrocodone Bitart/Acetaminophen 1 tab 01/16/20 14:42 01/25/20 00:53 [place] 5-325 Mg PO 1 tab Q6H PRN Administration Pain, Moderate Apixaban 5 mg 01/20/20 09:00 01/25/20 09:19 Eliquis PO 5 mg BID ARSENIO Administration Atorvastatin Calcium 40 mg 01/16/20 21:00 01/24/20 21:08 Lipitor PO 40 mg HS ARSENIO Administration Bisacodyl 10 mg 01/23/20 11:38 Dulcolax Suppository RECTAL QAM PRN Constipation Buspirone HCl 5 mg 01/16/20 17:00 01/25/20 09:19 Buspar PO 5 mg BID ARSENIO Administration Diltiazem HCl 120 mg 01/17/20 09:00 01/25/20 09:19 Cardizem Cd PO 120 mg DAILY ARSENIO Administration Docusate Sodium 100 mg 01/23/20 21:00 01/25/20 09:19 Colace Capsule PO 100 mg Q12HR ARSENIO Administration Finasteride 5 mg 01/17/20 09:00 01/25/20 09:19 Proscar PO 5 mg DAILY ARSENIO Administration Lactulose 30 gm 01/22/20 13:28 01/23/20 09:08 Lactulose PO 30 gm QAM PRN Administration Constipation Melatonin 5 mg 01/19/20 21:00 01/24/20 21:08 Melatonin PO 5 mg HS ARSENIO Administration Menthol/Methyl Salicylate 1 applic 01/25/20 00:48 01/25/20 06:54 [place] Pain Relieving Cream TOPICAL 1 applic BID PRN Administration Muscle/Joint Pain Ondansetron HCl 4 mg 01/16/20 14:45 01/24/20 22:02 Zofran Odt PO 4 mg Q6H PRN Administration Nausea And Vomiting Polyethylene Glycol 17 gm 01/19/20 09:00 01/25/20 09:19 Miralax PO 17 gm QAM ARSENIO Administration Radiology Results: ITS Impressions Abdomen X-Ray 01/23/20 13:36 IMPRESSION: 1. Distended rectum containing stoo
[2020-01-25 14:00] VITALS: BP 148/78; PULSE 76; RESP 18; TEMP 36.4; O2SAT 97
--- NOTE | 2020-01-25 18:44 | PC.NURSE ---
sutures removed from left inside palm of hand.
[2020-01-25] MEDS: MELATONIN 5 MG TABLET PO (20:06)
[2020-01-25] MEDS: ATORVASTATIN 40 MG TABLET PO (20:06)
[2020-01-25 22:00] VITALS: BP 138/82; PULSE 65; RESP 18; TEMP 36.4; O2SAT 95
[2020-01-25] MEDS: ONDANSETRON HCL ODT 4 MG TABLET PO (23:57)
[2020-01-26 06:00] VITALS: BP 128/85; PULSE 57; RESP 18; TEMP 36.4; O2SAT 98
[2020-01-26] MEDS: ACETAMINOPHEN 325 MG TABLET 650 MG PO (06:38)
[2020-01-26] MEDS: APIXABAN 5 MG TABLET PO ×2 (08:54→17:35)
[2020-01-26] MEDS: polyethylene glycoL 3350 17 GM POWD.PACK PO (08:54)
[2020-01-26] MEDS: DOCUSATE SODIUM 100 MG CAPSULE PO ×2 (08:54→20:11)
[2020-01-26] MEDS: FINASTERIDE 5 MG TABLET PO (08:54)
[2020-01-26] MEDS: busPIRone HCL 5 MG TABLET PO ×2 (08:54→17:35)
[2020-01-26 09:30] VITALS: O2SAT 95
--- NOTE | 2020-01-26 11:54 | WPDNEURORHBP ---
Subjective Date/time seen: 79 years old has been admitted to the rehab with the category of his stroke and right middle cerebral artery stroke distribution in addition to history of atrial fibrillation, aortic insufficiency, DVT, pulmonary embolism, osteoarthritis, neurosensory hearing loss, and benign prostatic hypertrophy. CBC revealed stable WBCs hemoglobin and platelet count with normal UA01/26/20 11:54 Review of Systems Review of Systems: All systems reviewed & are unremarkable except as noted in HPI and below Functional Status Ambulation Ability Ambulation Assistive Devices: Railings Transfers Ability Ability to Transfer In/Out of Chair: Maximum Assistance X 2 Exam Narrative: Exam Narrative: has been involved in the physical therapy and occupational therapy ambulating with assistive devices in parallel bars transferring in and out of chair with maximum assistance of 2. General physical examination is normal in no obvious acute distress ear nose throat examinations are normal with moist mucous membranes no drainage eyes normal neck is supple with no restriction of range of motion no JVD heart regular with no murmur lungs clear to auscultation with no crepitation abdomen is soft with no organomegaly normal bowel sounds skin normal neurologically she is awake alert oriented x3 is speech nor dysphasic no dysarthric has significant left-sided weakness and mental status generally is normal. Objective Data Vital Signs Vital Signs: Vital Signs - 24 hr 01/25/20 14:00 01/25/20 22:00 01/26/20 06:00 Temperature 36.4 C 36.4 C L 36.4 C Pulse Rate 76 65 57 L Respiratory Rate 18 18 18 Blood Pressure 148/78 H 138/82 128/85 Pulse Oximetry 97 95 98 01/26/20 09:30 Temperature Pulse Rate Respiratory Rate Blood Pressure Pulse Oximetry 95 Intake/Output Intake/Output: Intake & Output 01/23/20 01/24/20 01/25/20 01/26/20 23:59 23:59 23:59 23:59 Intake Total 240 480 720 100 Balance 240 480 720 100 Meds/Results Medications: Active Medications Generic Name Dose Route Start Last Admin Trade Name Freq PRN Reason Stop Dose Admin Acetaminophen 650 mg 01/16/20 14:42 01/26/20 06:38 Tylenol Tablet PO 650 mg Q6H PRN Administration Pain 1-3 Hydrocodone Bitart/Acetaminophen 1 tab 01/16/20 14:42 01/25/20 23:55 [place] 5-325 Mg PO 1 tab Q6H PRN Administration Pain, Moderate Apixaban 5 mg 01/20/20 09:00 01/26/20 08:54 Eliquis PO 5 mg BID ARSENIO Administration Atorvastatin Calcium 40 mg 01/16/20 21:00 01/25/20 20:06 Lipitor PO 40 mg HS ARSENIO Administration Bisacodyl 10 mg 01/23/20 11:38 Dulcolax Suppository RECTAL QAM PRN Constipation Buspirone HCl 5 mg 01/16/20 17:00 01/26/20 08:54 Buspar PO 5 mg BID ARSENIO Administration Diltiazem HCl 120 mg 01/17/20 09:00 01/26/20 08:54 Cardizem Cd PO 120 mg DAILY [facility] Administration Docusate Sodium 100 mg 01/23/20 21:00 01/26/20 08:54 Colace Capsule PO 100 mg Q12HR ARSENIO Administration Finasteride 5 mg 01/17/20 09:00 01/26/20 08:54 Proscar PO 5 mg DAILY ARSENIO Administration Lactulose 30 gm 01/22/20 13:28 01/23/20 09:08 Lactulose PO 30 gm QAM PRN Administration Constipation Melatonin 5 mg 01/19/20 21:00 01/25/20 20:06 Melatonin PO 5 mg HS [facility] Administration Menthol/Methyl Salicylate 1 applic 01/25/20 00:48 01/25/20 06:54 [place] Pain Relieving Cream TOPICAL 1 applic BID PRN Administration Muscle/Joint Pain Ondansetron HCl 4 mg 01/16/20 14:45 01/25/20 23:57 Zofran Odt PO 4 mg Q6H PRN Administration Nausea And Vomiting Polyethylene Glycol 17 gm 01/19/20 09:00 01/26/20 08:54 Miralax PO 17 gm QAM ARSENIO Administration Radiology Results: ITS Impressions Abdomen X-Ray 01/23/20 13:36 IMPRESSION: 1. Distended rectum containing stool. Progress Note: A&P Assessment and Plan (1) Constipation:
[2020-01-26 14:00] VITALS: BP 108/74; PULSE 70; RESP 18; TEMP 36.4; O2SAT 92
[2020-01-26 20:00] VITALS: PULSE 66; RESP 18; O2SAT 96
[2020-01-26] MEDS: MELATONIN 5 MG TABLET PO (20:10)
[2020-01-26] MEDS: ATORVASTATIN 40 MG TABLET PO (20:11)
[2020-01-26] MEDS: HYDROcodone/acetaminophen (*CRX) 5-325 MG TABLET 1 TAB PO (21:00)
[2020-01-26 21:46] VITALS: BP 122/81; PULSE 66; RESP 18; TEMP 36.2; O2SAT 96
[2020-01-27 05:25] VITALS: BP 136/92; PULSE 60; RESP 18; TEMP 36.2; O2SAT 97
[2020-01-27 07:21] VITALS: O2SAT 96
[2020-01-27] MEDS: busPIRone HCL 5 MG TABLET PO ×2 (07:48→17:43)
[2020-01-27] MEDS: APIXABAN 5 MG TABLET PO ×2 (07:48→17:43)
[2020-01-27] MEDS: FINASTERIDE 5 MG TABLET PO (07:49)
[2020-01-27] MEDS: DOCUSATE SODIUM 100 MG CAPSULE PO ×2 (07:49→21:16)
[2020-01-27] MEDS: polyethylene glycoL 3350 17 GM POWD.PACK PO (07:49)
[2020-01-27 14:00] VITALS: BP 129/82; PULSE 102; RESP 18; TEMP 35.8; O2SAT 94
[2020-01-27] MEDS: MELATONIN 5 MG TABLET PO (21:16)
[2020-01-27] MEDS: ATORVASTATIN 40 MG TABLET PO (21:16)
[2020-01-27 22:00] VITALS: BP 139/81; PULSE 63; RESP 16; TEMP 36.2; O2SAT 90
[2020-01-27] MEDS: HYDROcodone/acetaminophen (*CRX) 5-325 MG TABLET 1 TAB PO (23:33)
[2020-01-28 06:00] VITALS: BP 116/72; PULSE 60; RESP 16; TEMP 36.4; O2SAT 100
[2020-01-28] MEDS: APIXABAN 5 MG TABLET PO ×2 (07:46→17:45)
[2020-01-28] MEDS: busPIRone HCL 5 MG TABLET PO ×2 (07:46→17:41)
[2020-01-28] MEDS: FINASTERIDE 5 MG TABLET PO (07:47)
[2020-01-28] MEDS: polyethylene glycoL 3350 17 GM POWD.PACK PO (07:47)
[2020-01-28] MEDS: DOCUSATE SODIUM 100 MG CAPSULE PO ×2 (07:47→20:00)
--- NOTE | 2020-01-28 09:57 | WPDNEURORHBP ---
Subjective Date/time seen: 01/28/20 09:57 79 years old with right middle cerebral artery distribution stroke secondary to underlying atrial fibrillation, aortic insufficiency and with DVT and pulmonary embolism osteoarthritis neurosensory hearing loss and benign prostatic hypertrophy continues to be involved in the physical therapy and occupational therapy has no specific complaints Review of Systems Review of Systems: All systems reviewed & are unremarkable except as noted in HPI and below Functional Status Ambulation Ability Ambulation Assistive Devices: Railings Transfers Ability Ability to Transfer In/Out of Chair: Maximum Assistance X 2 Exam Narrative: Exam Narrative: examination reveals him to be awake alert cooperative in no obvious acute distress transferring in and out of chair with assistance general physical examination is normal nose throat examination normal with no drainage neck is supple no JVD heart regular lungs clear abdomen is soft normal bowel sounds neurological she is awake alert oriented x3 his speech not dysphasic not dysarthric has obvious left-sided weakness but otherwise mental status is normal Objective Data Vital Signs Vital Signs: Vital Signs - 24 hr 01/27/20 14:00 01/27/20 22:00 01/28/20 06:00 Temperature 35.8 C L 36.2 C L 36.4 C L Pulse Rate 102 H 63 60 Respiratory Rate 18 16 16 Blood Pressure 129/82 139/81 116/72 Pulse Oximetry 94 90 100 Intake/Output Intake/Output: Intake & Output 01/25/20 01/26/20 01/27/20 01/28/20 23:59 23:59 23:59 23:59 Intake Total 720 580 720 360 Balance 720 580 720 360 Meds/Results Medications: Active Medications Generic Name Dose Route Start Last Admin Trade Name Freq PRN Reason Stop Dose Admin Acetaminophen 650 mg 01/16/20 14:42 01/26/20 06:38 Tylenol Tablet PO 650 mg Q6H PRN Administration Pain 1-3 Hydrocodone Bitart/Acetaminophen 1 tab 01/16/20 14:42 01/27/20 23:33 [place] 5-325 Mg PO 1 tab Q6H PRN Administration Pain, Moderate Apixaban 5 mg 01/20/20 09:00 01/28/20 07:46 Eliquis PO 5 mg BID ARSENIO Administration Atorvastatin Calcium 40 mg 01/16/20 21:00 01/27/20 21:16 Lipitor PO 40 mg HS ARSENIO Administration Bisacodyl 10 mg 01/23/20 11:38 Dulcolax Suppository RECTAL QAM PRN Constipation Buspirone HCl 5 mg 01/16/20 17:00 01/28/20 07:46 Buspar PO 5 mg BID ARSENIO Administration Diltiazem HCl 120 mg 01/17/20 09:00 01/28/20 07:47 Cardizem Cd PO 120 mg DAILY ARSENIO Administration Docusate Sodium 100 mg 01/23/20 21:00 01/28/20 07:47 Colace Capsule PO 100 mg Q12HR ARSENIO Administration Finasteride 5 mg 01/17/20 09:00 01/28/20 07:47 Proscar PO 5 mg DAILY ARSENIO Administration Lactulose 30 gm 01/22/20 13:28 01/23/20 09:08 Lactulose PO 30 gm QAM PRN Administration Constipation Melatonin 5 mg 01/19/20 21:00 01/27/20 21:16 Melatonin PO 5 mg HS ARSENIO Administration Menthol/Methyl Salicylate 1 applic 01/25/20 00:48 01/25/20 06:54 [place] Pain Relieving Cream TOPICAL 1 applic BID PRN Administration Muscle/Joint Pain Ondansetron HCl 4 mg 01/16/20 14:45 01/25/20 23:57 Zofran Odt PO 4 mg Q6H PRN Administration Nausea And Vomiting Polyethylene Glycol 17 gm 01/19/20 09:00 01/28/20 07:47 Miralax PO 17 gm QAM ARSENIO Administration Radiology Results: ITS Impressions Abdomen X-Ray 01/23/20 13:36 IMPRESSION: 1. Distended rectum containing stool. Progress Note: A&P Assessment and Plan (1) S/P left atrial appendage ligation: Code(s): Z98.890 - Other specified postprocedural states Status: Acute (2) S/P AVR: Code(s): Z95.2 - Presence of prosthetic heart valve Status: Acute (3) Atrial fibrillation: Code(s): I48.91 - Unspecified atrial fibrillation Status: Acute (4) Left hemiparesis: Code(s): G81.94 - Hemiplegia, unspecified
[2020-01-28 14:00] VITALS: BP 114/65; PULSE 69; RESP 16; TEMP 36; O2SAT 98
[2020-01-28] MEDS: ACETAMINOPHEN 325 MG TABLET 650 MG PO (15:44)
[2020-01-28] MEDS: ATORVASTATIN 40 MG TABLET PO (20:00)
[2020-01-28] MEDS: MELATONIN 5 MG TABLET PO (20:00)
[2020-01-28 22:00] VITALS: BP 128/73; PULSE 66; RESP 18; TEMP 36.1; O2SAT 97
[2020-01-29 06:00] VITALS: BP 128/65; PULSE 64; RESP 16; TEMP 36.2; O2SAT 100
[2020-01-29] MEDS: DOCUSATE SODIUM 100 MG CAPSULE PO ×2 (07:35→20:48)
[2020-01-29] MEDS: FINASTERIDE 5 MG TABLET PO (07:35)
[2020-01-29] MEDS: APIXABAN 5 MG TABLET PO ×2 (07:35→17:26)
[2020-01-29] MEDS: polyethylene glycoL 3350 17 GM POWD.PACK PO (07:35)
[2020-01-29] MEDS: busPIRone HCL 5 MG TABLET PO ×2 (07:35→17:26)
--- NOTE | 2020-01-29 11:49 | PCDIET ---
Nutrition Follow-Up Complete: Nutrition Diagnosis: Predicted suboptimal oral intake related to recent CVA as evidenced by patient statements, reported decreased appetite. Nutrition Goal: Patient to consume 75% of meals or greater. Goal met. Patient now consuming 100% of meals on regular diet. Recommend heart healthy diet now that patient is eating well. Last recorded weight is 86.8 kg. Recommend obtaining new weight. Bowel Motility: Last documented BM on 01/27/20. Labs Reviewed: Hgb (13.6), Hct (40.7) Meds Noted: [place], Colace, Lactulose, Miralax Additional Notes: No documented pressure ulcers. Will continue to monitor with same goal. Nutrition Monitoring and Evaluation: Follow up in 7 days.
--- NOTE | 2020-01-29 13:21 | WPDNEURORHBP ---
Subjective Date/time seen: 01/29/20 13:21 Interval history: this 79-year-old is here after having had a stroke which left him with left-sided significant a deficit he is progressing fairly well from the nursing standpoint he is doing good however the occupational therapy he needs 50% assistance in the lower extremity he needs 75% assistance assistance he denies any headache nausea vomiting chest pain shortness of breath fever chills sore throat Review of Systems Review of Systems: All systems reviewed & are unremarkable except as noted in HPI and below Functional Status Ambulation Ability Ambulation Assistive Devices: Railings Transfers Ability Ability to Transfer In/Out of Chair: Maximum Assistance X 2 Exam Const: General: comfortable and no acute distress HENMT: General nose exam: Normal nares present Mouth: Yes moist mucous membranes Eyes: General: appearance normal, both eyes and all related structures Neck: Neck: supple and no JVD Resp: Effort & Inspection: normal respiratory effort Auscultation: clear to auscultation bilaterally Cardio: Rate: regular rate Rhythm: regular rhythm GI: GI Palp: Yes Soft to palpation Auscultation: normal bowel sounds Skin: General skin exam: normal color and no rashes or lesions noted Neuro: Other: patient is awake and alert well oriented follows all commands and has left-sided moderately severe hemiparesis bordering on hemiplegia Extrem: General: normal to inspection Psych: Mental Status: mental status grossly normal Objective Data Vital Signs Vital Signs: Vital Signs - 24 hr 01/28/20 14:00 01/28/20 22:00 01/29/20 06:00 Temperature 36.0 C L 36.1 C L 36.2 C L Pulse Rate 69 66 64 Respiratory Rate 16 18 16 Blood Pressure 114/65 128/73 128/65 Pulse Oximetry 98 97 100 Intake/Output Intake/Output: Intake & Output 01/26/20 01/27/20 01/28/20 01/29/20 23:59 23:59 23:59 23:59 Intake Total 580 720 840 240 Balance 580 720 840 240 Meds/Results Medications: Active Medications Generic Name Dose Route Start Last Admin Trade Name Freq PRN Reason Stop Dose Admin Acetaminophen 650 mg 01/16/20 14:42 01/28/20 15:44 Tylenol Tablet PO 650 mg Q6H PRN Administration Pain 1-3 Hydrocodone Bitart/Acetaminophen 1 tab 01/16/20 14:42 01/27/20 23:33 [place] 5-325 Mg PO 1 tab Q6H PRN Administration Pain, Moderate Apixaban 5 mg 01/20/20 09:00 01/29/20 07:35 Eliquis PO 5 mg BID ARSENIO Administration Atorvastatin Calcium 40 mg 01/16/20 21:00 01/28/20 20:00 Lipitor PO 40 mg HS ARSENIO Administration Bisacodyl 10 mg 01/23/20 11:38 Dulcolax Suppository RECTAL QAM PRN Constipation Buspirone HCl 5 mg 01/16/20 17:00 01/29/20 07:35 Buspar PO 5 mg BID ARSENIO Administration Diltiazem HCl 120 mg 01/17/20 09:00 01/29/20 07:35 Cardizem Cd PO 120 mg DAILY ARSENIO Administration Docusate Sodium 100 mg 01/23/20 21:00 01/29/20 07:35 Colace Capsule PO 100 mg Q12HR ARSENIO Administration Finasteride 5 mg 01/17/20 09:00 01/29/20 07:35 Proscar PO 5 mg DAILY [facility] Administration Lactulose 30 gm 01/22/20 13:28 01/23/20 09:08 Lactulose PO 30 gm QAM PRN Administration Constipation Melatonin 5 mg 01/19/20 21:00 01/28/20 20:00 Melatonin PO 5 mg HS ARSENIO Administration Menthol/Methyl Salicylate 1 applic 01/25/20 00:48 01/25/20 06:54 [place] Pain Relieving Cream TOPICAL 1 applic BID PRN Administration Muscle/Joint Pain Ondansetron HCl 4 mg 01/16/20 14:45 01/25/20 23:57 Zofran Odt PO 4 mg Q6H PRN Administration Nausea And Vomiting Polyethylene Glycol 17 gm 01/19/20 09:00 01/29/20 07:35 Miralax PO 17 gm QAM ARSENIO Administration Radiology Results: ITS Impressions Abdomen X-Ray 01/23/20 13:36 IMPRESSION: 1. Distended rectum containing stool. Progress Note: A&P Assessment and Plan (1) Constipation: Code(s):
[2020-01-29 14:00] VITALS: BP 122/67; PULSE 72; RESP 18; TEMP 36.3; O2SAT 99
[2020-01-29] MEDS: ATORVASTATIN 40 MG TABLET PO (20:48)
[2020-01-29] MEDS: MELATONIN 5 MG TABLET PO (20:48)
[2020-01-29] MEDS: ACETAMINOPHEN 325 MG TABLET 650 MG PO (20:50)
[2020-01-29 22:00] VITALS: BP 145/73; PULSE 73; RESP 18; TEMP 36.5; O2SAT 96
[2020-01-30] MEDS: ONDANSETRON HCL ODT 4 MG TABLET PO (01:55)
[2020-01-30 06:00] VITALS: BP 128/76; PULSE 62; RESP 16; TEMP 35.9; O2SAT 98
[2020-01-30] MEDS: polyethylene glycoL 3350 17 GM POWD.PACK PO (09:11)
[2020-01-30] MEDS: DOCUSATE SODIUM 100 MG CAPSULE PO ×2 (09:11→19:56)
[2020-01-30] MEDS: busPIRone HCL 5 MG TABLET PO ×2 (09:12→17:51)
[2020-01-30] MEDS: FINASTERIDE 5 MG TABLET PO (09:12)
[2020-01-30] MEDS: APIXABAN 5 MG TABLET PO ×2 (09:12→17:51)
[2020-01-30 09:15] VITALS: PULSE 76; RESP 18; O2SAT 97
[2020-01-30 14:00] VITALS: BP 143/81; PULSE 76; RESP 18; TEMP 36.5; O2SAT 97
--- NOTE | 2020-01-30 16:21 | WPDNEURORHBP ---
Subjective Date/time seen: 01/30/20 16:21 Interval history: this 79-year-old gentleman is here status post stroke with significant left-sided weakness is slowly improving but still needs assistance in all the activities of daily living she denies any headache nausea vomiting chest pain shortness of breath fever chills sore throat Review of Systems Review of Systems: All systems reviewed & are unremarkable except as noted in HPI and below Functional Status Ambulation Ability Ability to Ambulate 10 Feet: Maximum Assistance X 1 Ambulation Assistive Devices: Railings Transfers Ability Ability to Transfer In/Out of Chair: Maximum Assistance X 2 Exam Const: General: comfortable and no acute distress HENMT: General nose exam: Normal nares present Mouth: Yes moist mucous membranes Eyes: General: appearance normal, both eyes and all related structures Neck: Neck: supple and no JVD Resp: Effort & Inspection: normal respiratory effort Auscultation: clear to auscultation bilaterally Cardio: Rate: regular rate Rhythm: regular rhythm GI: GI Palp: Yes Soft to palpation Auscultation: normal bowel sounds Skin: General skin exam: normal color and no rashes or lesions noted Neuro: Other: patient is awake alert well oriented not any distress very slowly improving left-sided weakness but still needing lot of assistance in the activities of daily living Extrem: General: normal to inspection Psych: Mental Status: mental status grossly normal Objective Data Vital Signs Vital Signs: Vital Signs - 24 hr 01/29/20 22:00 01/30/20 06:00 Temperature 36.5 C 35.9 C L Pulse Rate 73 62 Respiratory Rate 18 16 Blood Pressure 145/73 H 128/76 Pulse Oximetry 96 98 Intake/Output Intake/Output: Intake & Output 01/27/20 01/28/20 01/29/20 01/30/20 23:59 23:59 23:59 23:59 Intake Total 720 840 720 240 Balance 720 840 720 240 Meds/Results Medications: Active Medications Generic Name Dose Route Start Last Admin Trade Name Freq PRN Reason Stop Dose Admin Acetaminophen 650 mg 01/16/20 14:42 01/29/20 20:50 Tylenol Tablet PO 650 mg Q6H PRN Administration Pain 1-3 Hydrocodone Bitart/Acetaminophen 1 tab 01/16/20 14:42 01/27/20 23:33 [place] 5-325 Mg PO 1 tab Q6H PRN Administration Pain, Moderate Apixaban 5 mg 01/20/20 09:00 01/30/20 09:12 Eliquis PO 5 mg BID ARSENIO Administration Atorvastatin Calcium 40 mg 01/16/20 21:00 01/29/20 20:48 Lipitor PO 40 mg HS ARSENIO Administration Bisacodyl 10 mg 01/23/20 11:38 Dulcolax Suppository RECTAL QAM PRN Constipation Buspirone HCl 5 mg 01/16/20 17:00 01/30/20 09:12 Buspar PO 5 mg BID ARSENIO Administration Diltiazem HCl 120 mg 01/17/20 09:00 01/30/20 09:11 Cardizem Cd PO 120 mg DAILY ARSENIO Administration Docusate Sodium 100 mg 01/23/20 21:00 01/30/20 09:11 Colace Capsule PO 100 mg Q12HR ARSENIO Administration Finasteride 5 mg 01/17/20 09:00 01/30/20 09:12 Proscar PO 5 mg DAILY ARSENIO Administration Lactulose 30 gm 01/22/20 13:28 01/23/20 09:08 Lactulose PO 30 gm QAM PRN Administration Constipation Melatonin 5 mg 01/19/20 21:00 01/29/20 20:48 Melatonin PO 5 mg HS ARSENIO Administration Menthol/Methyl Salicylate 1 applic 01/25/20 00:48 01/25/20 06:54 [place] Pain Relieving Cream TOPICAL 1 applic BID PRN Administration Muscle/Joint Pain Ondansetron HCl 4 mg 01/16/20 14:45 01/30/20 01:55 Zofran Odt PO 4 mg Q6H PRN Administration Nausea And Vomiting Polyethylene Glycol 17 gm 01/19/20 09:00 01/30/20 09:11 Miralax PO 17 gm QAM ARSENIO Administration Radiology Results: ITS Impressions Abdomen X-Ray 01/23/20 13:36 IMPRESSION: 1. Distended rectum containing stool. Progress Note: A&P Assessment and Plan (1) S/P left atrial appendage ligation: Code(s): Z98.890 - Other specified postprocedural states
[2020-01-30] MEDS: ATORVASTATIN 40 MG TABLET PO (19:56)
[2020-01-30] MEDS: MELATONIN 5 MG TABLET PO (19:56)
[2020-01-30 21:31] VITALS: BP 108/72; PULSE 72; RESP 18; TEMP 36.2; O2SAT 95
[2020-01-31 04:59] VITALS: BP 120/70; PULSE 67; RESP 18; TEMP 36.1; O2SAT 98
[2020-01-31 05:08] LABS: Basophils Absolute Auto 0.1 K/mm3 (0.0-0.1); Basophils Percent Auto 0.8 % (0.2-1.2); Eosinophils Absolute Auto 0.3 K/mm3 (0-0.3); Eosinophils Percent Auto 5.1 % (0-4.4); Hematocrit 42.9 % (42.0-52.0); Hemoglobin 14.2 g/dL (14.0-18.0); Immature Granulocyte Absolute 0.02 K/mm3 (0.00-0.031); Immature Granulocyte Percent A 0.3 % (0-0.5); Lymphocytes Absolute Auto 2.21 K/mm3 (0.9-3.2); Lymphocytes Percent Auto 34.9 % (18.3-44.2); Mean Corpuscular HGB Conc 33.1 g/dl (32-36); Mean Corpuscular Hemoglobin 31.2 pg (26-34); Mean Corpuscular Volume 94.3 fl (80-100); Mean Platelet Volume 11.8 fl (7.4-10.4); Monocytes Absolute Auto 0.8 K/mm3 (0.1-0.6); Neutrophils Absolute Auto 2.9 K/mm3 (1.3-6.7); Neutrophils Percent Auto 45.9 % (45.5-73.1); Platelet Count Result 197 k/mm3 (150-375); Red Blood Count 4.55 M/mm3 (4.6-6.20); White Blood Count 6.3 K/mm3 (4.5-10.0)
[2020-01-31 05:28] LABS: Anion Gap 5 mmol/L (8-16); Blood Urea Nitrogen 17 mg/dL (9-20); Calcium 9.2 mg/dL (8.4-10.2); Carbon Dioxide 31 mmol/L (22-30); Chloride 105 mmol/L (98-107); Estimated CRCL calculation 74 ml/min; Estimated Glomerular Filt Rate > 60; Glucose 107 mg/dL (75-110); Potassium 3.8 mmol/L (3.4-5.0); Sodium 141 mmol/L (137-145)
[2020-01-31] MEDS: FINASTERIDE 5 MG TABLET PO (08:29)
[2020-01-31] MEDS: busPIRone HCL 5 MG TABLET PO ×2 (08:29→17:25)
[2020-01-31] MEDS: DOCUSATE SODIUM 100 MG CAPSULE PO ×2 (08:29→20:15)
[2020-01-31] MEDS: APIXABAN 5 MG TABLET PO ×2 (08:29→17:25)
[2020-01-31] MEDS: polyethylene glycoL 3350 17 GM POWD.PACK PO (08:30)
[2020-01-31 14:00] VITALS: BP 122/97; PULSE 68; RESP 18; TEMP 36.4; O2SAT 98
[2020-01-31] MEDS: ONDANSETRON HCL ODT 4 MG TABLET PO (18:36)
[2020-01-31] MEDS: HYDROcodone/acetaminophen (*CRX) 5-325 MG TABLET 1 TAB PO (20:15)
[2020-01-31] MEDS: MELATONIN 5 MG TABLET PO (20:15)
[2020-01-31] MEDS: ATORVASTATIN 40 MG TABLET PO (20:15)
[2020-01-31 22:00] VITALS: BP 122/70; PULSE 72; RESP 17; TEMP 36.3; O2SAT 96
[2020-02-01 06:00] VITALS: BP 134/81; PULSE 60; RESP 16; TEMP 36; O2SAT 100
[2020-02-01] MEDS: APIXABAN 5 MG TABLET PO ×2 (09:43→17:25)
[2020-02-01] MEDS: FINASTERIDE 5 MG TABLET PO (09:43)
[2020-02-01] MEDS: DOCUSATE SODIUM 100 MG CAPSULE PO ×2 (09:43→20:25)
[2020-02-01] MEDS: busPIRone HCL 5 MG TABLET PO ×2 (09:43→17:25)
[2020-02-01] MEDS: polyethylene glycoL 3350 17 GM POWD.PACK PO (09:43)
[2020-02-01 09:47] VITALS: PULSE 62; RESP 16; O2SAT 100
--- NOTE | 2020-02-01 11:46 | WPDNEURORHBP ---
Subjective Date/time seen: 02/01/20 11:46 Interval history: this 79-year-old gentleman is here with the stroke which has left him with the significant left-sided hemiparesis from which he is improving and lower extremity shows signs of improvement left upper extremity remains flaccid is quite motivated denies any headache nausea vomiting chest pain shortness of breath fever chills sore throat Review of Systems Review of Systems: All systems reviewed & are unremarkable except as noted in HPI and below Functional Status Ambulation Ability Ability to Ambulate 10 Feet: Moderate Assistance X 1 Ambulation Assistive Devices: Railings Transfers Ability Ability to Transfer In/Out of Chair: Maximum Assistance X 2 Exam Const: General: comfortable and no acute distress HENMT: General nose exam: Normal nares present Mouth: Yes moist mucous membranes Eyes: General: appearance normal, both eyes and all related structures Neck: Neck: supple and no JVD Resp: Effort & Inspection: normal respiratory effort Auscultation: clear to auscultation bilaterally Cardio: Rate: regular rate Rhythm: regular rhythm GI: GI Palp: Yes Soft to palpation Auscultation: normal bowel sounds Skin: General skin exam: normal color and no rashes or lesions noted Neuro: Other: patient is awake and alert well oriented with improving left-sided significant hemiparesis Extrem: General: normal to inspection Psych: Mental Status: mental status grossly normal Objective Data Vital Signs Vital Signs: Vital Signs - 24 hr 01/31/20 14:00 01/31/20 22:00 02/01/20 06:00 Temperature 36.4 C L 36.3 C L 36.0 C L Pulse Rate 68 72 60 Respiratory Rate 18 17 16 Blood Pressure 122/97 H 122/70 134/81 Pulse Oximetry 98 96 100 02/01/20 09:47 Temperature Pulse Rate 62 Respiratory Rate 16 Blood Pressure Pulse Oximetry 100 Intake/Output Intake/Output: Intake & Output 01/29/20 01/30/20 01/31/20 02/01/20 23:59 23:59 23:59 23:59 Intake Total 720 720 720 240 Balance 720 720 720 240 Meds/Results Medications: Active Medications Generic Name Dose Route Start Last Admin Trade Name Freq PRN Reason Stop Dose Admin Acetaminophen 650 mg 01/16/20 14:42 01/29/20 20:50 Tylenol Tablet PO 650 mg Q6H PRN Administration Pain 1-3 Hydrocodone Bitart/Acetaminophen 1 tab 01/16/20 14:42 01/31/20 20:15 [place] 5-325 Mg PO 1 tab Q6H PRN Administration Pain, Moderate Apixaban 5 mg 01/20/20 09:00 02/01/20 09:43 Eliquis PO 5 mg BID ARSENIO Administration Atorvastatin Calcium 40 mg 01/16/20 21:00 01/31/20 20:15 Lipitor PO 40 mg HS ARSENIO Administration Bisacodyl 10 mg 01/23/20 11:38 Dulcolax Suppository RECTAL QAM PRN Constipation Buspirone HCl 5 mg 01/16/20 17:00 02/01/20 09:43 Buspar PO 5 mg BID ARSENIO Administration Diltiazem HCl 120 mg 01/17/20 09:00 02/01/20 09:43 Cardizem Cd PO 120 mg DAILY ASRENIO Administration Docusate Sodium 100 mg 01/23/20 21:00 02/01/20 09:43 Colace Capsule PO 100 mg Q12HR ARSENIO Administration Finasteride 5 mg 01/17/20 09:00 02/01/20 09:43 Proscar PO 5 mg DAILY ARSENIO Administration Lactulose 30 gm 01/22/20 13:28 01/23/20 09:08 Lactulose PO 30 gm QAM PRN Administration Constipation Melatonin 5 mg 01/19/20 21:00 01/31/20 20:15 Melatonin PO 5 mg HS ARSENIO Administration Menthol/Methyl Salicylate 1 applic 01/25/20 00:48 01/25/20 06:54 [place] Pain Relieving Cream TOPICAL 1 applic BID PRN Administration Muscle/Joint Pain Ondansetron HCl 4 mg 01/16/20 14:45 01/31/20 18:36 Zofran Odt PO 4 mg Q6H PRN Administration Nausea And Vomiting Polyethylene Glycol 17 gm 01/19/20 09:00 02/01/20 09:43 Miralax PO 17 gm QAM ARSENIO Administration Radiology Results: ITS Impressions Abdomen X-Ray 01/23/20 13:36 IMPRESSION: 1. Distended rectum containing stool. Progress N
[2020-02-01 14:00] VITALS: BP 130/79; PULSE 82; RESP 18; TEMP 36.2; O2SAT 97
[2020-02-01 20:00] VITALS: O2SAT 98
[2020-02-01] MEDS: MELATONIN 5 MG TABLET PO (20:25)
[2020-02-01] MEDS: ATORVASTATIN 40 MG TABLET PO (20:25)
[2020-02-01 21:43] VITALS: BP 135/77; PULSE 70; RESP 18; TEMP 36.5; O2SAT 98
[2020-02-02] MEDS: HYDROcodone/acetaminophen (*CRX) 5-325 MG TABLET 1 TAB PO (00:36)
[2020-02-02 06:00] VITALS: BP 127/88; PULSE 61; RESP 18; TEMP 37; O2SAT 98
[2020-02-02] MEDS: APIXABAN 5 MG TABLET PO ×2 (08:30→17:19)
[2020-02-02] MEDS: busPIRone HCL 5 MG TABLET PO ×2 (08:30→17:19)
[2020-02-02] MEDS: DOCUSATE SODIUM 100 MG CAPSULE PO ×2 (08:30→20:45)
[2020-02-02] MEDS: FINASTERIDE 5 MG TABLET PO (08:30)
[2020-02-02] MEDS: polyethylene glycoL 3350 17 GM POWD.PACK PO (08:30)
[2020-02-02] MEDS: LACTULOSE 20 GM/30 ML UDC 30 GM PO (08:30)
[2020-02-02 14:00] VITALS: BP 145/98; PULSE 67; RESP 20; TEMP 36.4; O2SAT 98
[2020-02-02 20:00] VITALS: PULSE 67; RESP 20; O2SAT 98
[2020-02-02] MEDS: ATORVASTATIN 40 MG TABLET PO (20:45)
[2020-02-02 21:54] VITALS: BP 147/89; PULSE 51; RESP 18; TEMP 36.1; O2SAT 96
[2020-02-02] MEDS: MELATONIN 5 MG TABLET PO (22:34)
[2020-02-03 06:00] VITALS: BP 138/72; PULSE 68; RESP 18; TEMP 36.1; O2SAT 100
[2020-02-03] MEDS: FINASTERIDE 5 MG TABLET PO (08:25)
[2020-02-03] MEDS: polyethylene glycoL 3350 17 GM POWD.PACK PO (08:25)
[2020-02-03] MEDS: APIXABAN 5 MG TABLET PO ×2 (08:25→16:47)
[2020-02-03] MEDS: busPIRone HCL 5 MG TABLET PO ×2 (08:25→16:47)
[2020-02-03] MEDS: DOCUSATE SODIUM 100 MG CAPSULE PO ×2 (08:25→21:04)
[2020-02-03 11:41] VITALS: O2SAT 93
[2020-02-03 14:00] VITALS: BP 137/80; PULSE 73; RESP 18; TEMP 36.6; O2SAT 97
--- NOTE | 2020-02-03 17:02 | WPDNEURORHBP ---
Subjective Date/time seen: 02/03/20 17:02 Interval history: this pleasant 79 year year old is here status post stroke with a moderately severe left-sided hemiparesis where the leg is improving relatively faster the left upper extremity he denies any new complaints denies any headache nausea vomiting chest pain shortness of breath fever chills sore throat Review of Systems Review of Systems: All systems reviewed & are unremarkable except as noted in HPI and below Functional Status Ambulation Ability Ability to Ambulate 10 Feet: Maximum Assistance X 1 Ambulation Assistive Devices: Parallel Bars Transfers Ability Ability to Transfer In/Out of Chair: Maximum Assistance X 2 Exam Const: General: comfortable and no acute distress HENMT: General nose exam: Normal nares present Mouth: Yes moist mucous membranes Eyes: General: appearance normal, both eyes and all related structures Neck: Neck: supple and no JVD Resp: Effort & Inspection: normal respiratory effort Auscultation: clear to auscultation bilaterally Cardio: Rate: regular rate Rhythm: regular rhythm GI: GI Palp: Yes Soft to palpation Auscultation: normal bowel sounds Skin: General skin exam: normal color and no rashes or lesions noted Neuro: Other: patient is awake alert well oriented with fluent speech and improving left-sided weakness which is is still not enough for him to be independent Extrem: General: normal to inspection Psych: Mental Status: mental status grossly normal Objective Data Vital Signs Vital Signs: Vital Signs - 24 hr 02/02/20 20:00 02/02/20 21:54 02/03/20 06:00 Temperature 36.1 C L 36.1 C L Pulse Rate 67 51 L 68 Respiratory Rate 20 18 18 Blood Pressure 147/89 H 138/72 Pulse Oximetry 98 96 100 02/03/20 11:41 02/03/20 14:00 Temperature 36.6 C Pulse Rate 73 Respiratory Rate 18 Blood Pressure 137/80 Pulse Oximetry 93 97 Intake/Output Intake/Output: Intake & Output 01/31/20 02/01/20 02/02/20 02/03/20 23:59 23:59 23:59 23:59 Intake Total 720 720 720 480 Balance 720 720 720 480 Meds/Results Medications: Active Medications Generic Name Dose Route Start Last Admin Trade Name Freq PRN Reason Stop Dose Admin Acetaminophen 650 mg 01/16/20 14:42 01/29/20 20:50 Tylenol Tablet PO 650 mg Q6H PRN Administration Pain 1-3 Hydrocodone Bitart/Acetaminophen 1 tab 01/16/20 14:42 02/02/20 00:36 [place] 5-325 Mg PO 1 tab Q6H PRN Administration Pain, Moderate Apixaban 5 mg 01/20/20 09:00 02/03/20 16:47 Eliquis PO 5 mg BID ARSENIO Administration Atorvastatin Calcium 40 mg 01/16/20 21:00 02/02/20 20:45 Lipitor PO 40 mg HS ARSENIO Administration Bisacodyl 10 mg 01/23/20 11:38 Dulcolax Suppository RECTAL QAM PRN Constipation Buspirone HCl 5 mg 01/16/20 17:00 02/03/20 16:47 Buspar PO 5 mg BID ARSENIO Administration Diltiazem HCl 120 mg 01/17/20 09:00 02/03/20 08:25 Cardizem Cd PO 120 mg DAILY ARSENIO Administration Docusate Sodium 100 mg 01/23/20 21:00 02/03/20 08:25 Colace Capsule PO 100 mg Q12HR ARSENIO Administration Finasteride 5 mg 01/17/20 09:00 02/03/20 08:25 Proscar PO 5 mg DAILY ARSENIO Administration Lactulose 30 gm 01/22/20 13:28 02/02/20 08:30 Lactulose PO 30 gm QAM PRN Administration Constipation Melatonin 5 mg 01/19/20 21:00 02/02/20 22:34 Melatonin PO 5 mg HS ARSENIO Administration Menthol/Methyl Salicylate 1 applic 01/25/20 00:48 01/25/20 06:54 [place] Pain Relieving Cream TOPICAL 1 applic BID PRN Administration Muscle/Joint Pain Ondansetron HCl 4 mg 01/16/20 14:45 01/31/20 18:36 Zofran Odt PO 4 mg Q6H PRN Administration Nausea And Vomiting Polyethylene Glycol 17 gm 01/19/20 09:00 02/03/20 08:25 Miralax PO 17 gm QAM ARSENIO Administration Radiology Results: ITS Impressions Abdomen X-Ray 01/23/20 13:36 IMPRESSION: 1. Distended rectum
[2020-02-03 19:33] VITALS: PULSE 71; O2SAT 95
[2020-02-03 20:00] VITALS: O2SAT 95
[2020-02-03 20:56] VITALS: BP 143/80; PULSE 80; RESP 18; TEMP 36.3; O2SAT 97
[2020-02-03] MEDS: ATORVASTATIN 40 MG TABLET PO (21:05)
[2020-02-03] MEDS: MELATONIN 5 MG TABLET PO (22:11)
[2020-02-03] MEDS: HYDROcodone/acetaminophen (*CRX) 5-325 MG TABLET 1 TAB PO (22:13)
[2020-02-04 05:42] VITALS: BP 126/76; PULSE 64; RESP 18; TEMP 36.2; O2SAT 97
[2020-02-04 07:49] VITALS: O2SAT 93
[2020-02-04] MEDS: APIXABAN 5 MG TABLET PO ×2 (08:40→16:48)
[2020-02-04] MEDS: busPIRone HCL 5 MG TABLET PO ×2 (08:40→16:48)
[2020-02-04] MEDS: DOCUSATE SODIUM 100 MG CAPSULE PO ×2 (08:40→20:50)
[2020-02-04] MEDS: FINASTERIDE 5 MG TABLET PO (08:40)
[2020-02-04] MEDS: polyethylene glycoL 3350 17 GM POWD.PACK PO (08:40)
--- NOTE | 2020-02-04 10:17 | WPDNEURORHBP ---
Subjective Date/time seen: 02/04/20 10:17 79 years old with right middle cerebral artery distribution stroke with underlying atrial fibrillation, aortic insufficiency, DVT with pulmonary embolism, osteoarthritis neurosensory hearing loss and benign prostatic hypertrophy continues to be involved in the physical therapy and occupational therapy. With more improvement in the left upper extremity compared to the left lower extremity, routine lab with no significant abnormalities Review of Systems Review of Systems: All systems reviewed & are unremarkable except as noted in HPI and below Functional Status Ambulation Ability Ability to Ambulate 10 Feet: Maximum Assistance X 1 Ambulation Assistive Devices: Parallel Bars Transfers Ability Ability to Transfer In/Out of Chair: Maximum Assistance X 2 Exam Narrative: Exam Narrative: examination reveals him to be awake alert comfortable in no obvious acute distress ear nose throat examination normal mucous membranes moist with no obvious drainage eyes normal neck supple with no JVD heart regular lungs clear abdomen soft nontender normal bowel sounds and neurological examination remains essentially unchanged with left hemipareses and slow improvement Objective Data Vital Signs Vital Signs: Vital Signs - 24 hr 02/03/20 11:41 02/03/20 14:00 02/03/20 19:33 Temperature 36.6 C Pulse Rate 73 71 Respiratory Rate 18 Blood Pressure 137/80 Pulse Oximetry 93 97 95 02/03/20 20:00 02/03/20 20:56 02/04/20 05:42 Temperature 36.3 C L 36.2 C L Pulse Rate 80 64 Respiratory Rate 18 18 Blood Pressure 143/80 H 126/76 Pulse Oximetry 95 97 97 02/04/20 07:49 Temperature Pulse Rate Respiratory Rate Blood Pressure Pulse Oximetry 93 Intake/Output Intake/Output: Intake & Output 02/01/20 02/02/20 02/03/20 02/04/20 23:59 23:59 23:59 23:59 Intake Total 720 720 720 480 Balance 720 720 720 480 Meds/Results Medications: Active Medications Generic Name Dose Route Start Last Admin Trade Name Freq PRN Reason Stop Dose Admin Acetaminophen 650 mg 01/16/20 14:42 01/29/20 20:50 Tylenol Tablet PO 650 mg Q6H PRN Administration Pain 1-3 Hydrocodone Bitart/Acetaminophen 1 tab 01/16/20 14:42 02/03/20 22:13 [place] 5-325 Mg PO 1 tab Q6H PRN Administration Pain, Moderate Apixaban 5 mg 01/20/20 09:00 02/04/20 08:40 Eliquis PO 5 mg BID ARSENIO Administration Atorvastatin Calcium 40 mg 01/16/20 21:00 02/03/20 21:05 Lipitor PO 40 mg HS ARSENIO Administration Bisacodyl 10 mg 01/23/20 11:38 Dulcolax Suppository RECTAL QAM PRN Constipation Buspirone HCl 5 mg 01/16/20 17:00 02/04/20 08:40 Buspar PO 5 mg BID ARSENIO Administration Diltiazem HCl 120 mg 01/17/20 09:00 02/04/20 08:40 Cardizem Cd PO 120 mg DAILY ARSENIO Administration Docusate Sodium 100 mg 01/23/20 21:00 02/04/20 08:40 Colace Capsule PO 100 mg Q12HR ARSENIO Administration Finasteride 5 mg 01/17/20 09:00 02/04/20 08:40 Proscar PO 5 mg DAILY ARSENIO Administration Lactulose 30 gm 01/22/20 13:28 02/02/20 08:30 Lactulose PO 30 gm QAM PRN Administration Constipation Melatonin 5 mg 01/19/20 21:00 02/03/20 22:11 Melatonin PO 5 mg HS ARSENIO Administration Menthol/Methyl Salicylate 1 applic 01/25/20 00:48 01/25/20 06:54 [place] Pain Relieving Cream TOPICAL 1 applic BID PRN Administration Muscle/Joint Pain Ondansetron HCl 4 mg 01/16/20 14:45 01/31/20 18:36 Zofran Odt PO 4 mg Q6H PRN Administration Nausea And Vomiting Polyethylene Glycol 17 gm 01/19/20 09:00 02/04/20 08:40 Miralax PO 17 gm QAM ARSENIO Administration Radiology Results: ITS Impressions Abdomen X-Ray 01/23/20 13:36 IMPRESSION: 1. Distended rectum containing stool. Progress Note: A&P Assessment and Plan (1) Constipation: Code(s): K59.00 - Constipation, unspecified Status:
[2020-02-04 14:00] VITALS: BP 120/68; PULSE 72; RESP 16; TEMP 36.4; O2SAT 97
[2020-02-04] MEDS: MELATONIN 5 MG TABLET PO (20:49)
[2020-02-04] MEDS: ATORVASTATIN 40 MG TABLET PO (20:49)
[2020-02-04] MEDS: ACETAMINOPHEN 325 MG TABLET 650 MG PO (20:50)
[2020-02-04 22:00] VITALS: BP 149/89; PULSE 68; RESP 19; TEMP 36; O2SAT 96
[2020-02-05 06:00] VITALS: BP 165/87; PULSE 69; RESP 17; TEMP 36.3; O2SAT 96
[2020-02-05] MEDS: DOCUSATE SODIUM 100 MG CAPSULE PO ×2 (09:45→21:21)
[2020-02-05] MEDS: APIXABAN 5 MG TABLET PO ×2 (09:45→17:04)
[2020-02-05] MEDS: busPIRone HCL 5 MG TABLET PO ×2 (09:45→17:04)
[2020-02-05] MEDS: FINASTERIDE 5 MG TABLET PO (09:45)
[2020-02-05] MEDS: polyethylene glycoL 3350 17 GM POWD.PACK PO (09:46)
--- NOTE | 2020-02-05 12:41 | WPDNEURORHBP ---
Subjective Date/time seen: 02/05/20 12:41 Interval history: this 79-year-old is here after having had stroke which has left him with left-sided moderately severe weakness. The family is planning to get him to a facility where he can continue the therapy patient denies any headache nausea vomiting chest pain shortness of breath fever chills sore throat he is slated to be transferred there on Saturday February 08, 2020 Review of Systems Review of Systems: All systems reviewed & are unremarkable except as noted in HPI and below Functional Status Ambulation Ability Ability to Ambulate 10 Feet: Maximum Assistance X 1 Ambulation Assistive Devices: Parallel Bars Transfers Ability Ability to Transfer In/Out of Chair: Maximum Assistance X 2 Exam Const: General: comfortable and no acute distress HENMT: General nose exam: Normal nares present Mouth: Yes moist mucous membranes Eyes: General: appearance normal, both eyes and all related structures Neck: Neck: supple and no JVD Resp: Effort & Inspection: normal respiratory effort Auscultation: clear to auscultation bilaterally Cardio: Rate: regular rate Rhythm: regular rhythm GI: GI Palp: Yes Soft to palpation Auscultation: normal bowel sounds Skin: General skin exam: normal color and no rashes or lesions noted Neuro: Other: patient is awake alert well oriented has moderately severe left-sided weakness needing assistance in the all the activities of daily living but has improved overall left leg more so than the left upper extremity Extrem: General: normal to inspection Psych: Mental Status: mental status grossly normal Objective Data Vital Signs Vital Signs: Vital Signs - 24 hr 02/04/20 14:00 02/04/20 22:00 02/05/20 06:00 Temperature 36.4 C 36.0 C L 36.3 C L Pulse Rate 72 68 69 Respiratory Rate 16 19 17 Blood Pressure 120/68 149/89 H 165/87 H Pulse Oximetry 97 96 96 Intake/Output Intake/Output: Intake & Output 02/02/20 02/03/20 02/04/20 02/05/20 23:59 23:59 23:59 23:59 Intake Total 065 919 7472 480 Balance 990 500 8361 480 Meds/Results Medications: Active Medications Generic Name Dose Route Start Last Admin Trade Name Freq PRN Reason Stop Dose Admin Acetaminophen 650 mg 01/16/20 14:42 02/04/20 20:50 Tylenol Tablet PO 650 mg Q6H PRN Administration Pain 1-3 Hydrocodone Bitart/Acetaminophen 1 tab 01/16/20 14:42 02/03/20 22:13 [place] 5-325 Mg PO 1 tab Q6H PRN Administration Pain, Moderate Apixaban 5 mg 01/20/20 09:00 02/05/20 09:45 Eliquis PO 5 mg BID ARSENIO Administration Atorvastatin Calcium 40 mg 01/16/20 21:00 02/04/20 20:49 Lipitor PO 40 mg HS ARSENIO Administration Bisacodyl 10 mg 01/23/20 11:38 Dulcolax Suppository RECTAL QAM PRN Constipation Buspirone HCl 5 mg 01/16/20 17:00 02/05/20 09:45 Buspar PO 5 mg BID ARSENIO Administration Diltiazem HCl 120 mg 01/17/20 09:00 02/05/20 09:45 Cardizem Cd PO 120 mg DAILY ARSENIO Administration Docusate Sodium 100 mg 01/23/20 21:00 02/05/20 09:45 Colace Capsule PO 100 mg Q12HR ARSENIO Administration Finasteride 5 mg 01/17/20 09:00 02/05/20 09:45 Proscar PO 5 mg DAILY ARSENIO Administration Lactulose 30 gm 01/22/20 13:28 02/02/20 08:30 Lactulose PO 30 gm QAM PRN Administration Constipation Melatonin 5 mg 01/19/20 21:00 02/04/20 20:49 Melatonin PO 5 mg HS ARSENIO Administration Menthol/Methyl Salicylate 1 applic 01/25/20 00:48 01/25/20 06:54 [place] Pain Relieving Cream TOPICAL 1 applic BID PRN Administration Muscle/Joint Pain Ondansetron HCl 4 mg 01/16/20 14:45 01/31/20 18:36 Zofran Odt PO 4 mg Q6H PRN Administration Nausea And Vomiting Polyethylene Glycol 17 gm 01/19/20 09:00 02/05/20 09:46 Miralax PO 17 gm QAM ARSENIO Administration Radiology Results: ITS Impressions Abdomen X-Ray 01/23/20 13:36 IMPRESSION: 1. Distended rectum
[2020-02-05 14:00] VITALS: BP 129/87; PULSE 84; RESP 18; TEMP 36.2; O2SAT 96
--- NOTE | 2020-02-05 14:15 | PCNFU ---
Nutrition Follow-Up Complete: Predicted suboptimal oral intake related to recent CVA as evidenced by patient statements, reported decreased appetite. Patient to consume 75% of meals or greater. Goal: in progress, pt. is consuming 100% of meals, but does reports appetite fluctuates often. Pt current nutrition is regular diet, which is appropriate for physical condition and needs. Nutrition recommendation: consider continuing high fiber diet or fiber supplement after discharge. Last recorded weight is 86.8 kg, recommend obtaining new weight. Bowel Motility: last documented BM on 02/01 Labs Reviewed: Hgb (14.2), Hct (42.9), Na (141), K (3.8) Meds Noted: [place], Lipitor, Eliquis, Buspar, Miralax, Colace Additional Notes: Integumentary integrity- WNL. Follow up in 7 days.
--- NOTE | 2020-02-05 14:40 | PCNSR ---
On 02/05/20, the student, Candida Singh, provided care and completed [facility] documentation on this patient. I have reviewed the student's documentation and agree with the findings.
[2020-02-05 20:00] VITALS: PULSE 73; RESP 14; O2SAT 99
[2020-02-05] MEDS: ATORVASTATIN 40 MG TABLET PO (21:21)
[2020-02-05] MEDS: MELATONIN 5 MG TABLET PO (21:21)
[2020-02-05 21:25] VITALS: BP 145/64; PULSE 73; RESP 14; TEMP 37.4; O2SAT 99
[2020-02-06 05:16] VITALS: BP 116/63; PULSE 59; RESP 14; TEMP 36.1; O2SAT 99
[2020-02-06] MEDS: busPIRone HCL 5 MG TABLET PO ×2 (09:15→17:55)
[2020-02-06] MEDS: DOCUSATE SODIUM 100 MG CAPSULE PO ×2 (09:15→20:37)
[2020-02-06] MEDS: APIXABAN 5 MG TABLET PO ×2 (09:15→17:55)
[2020-02-06] MEDS: polyethylene glycoL 3350 17 GM POWD.PACK PO (09:16)
[2020-02-06] MEDS: FINASTERIDE 5 MG TABLET PO (09:16)
[2020-02-06 14:00] VITALS: BP 113/96; PULSE 70; RESP 20; TEMP 37; O2SAT 96
--- NOTE | 2020-02-06 14:58 | WPDNEURORHBP ---
Subjective Date/time seen: 02/06/20 14:58 Interval history: this 79-year-old gentleman is here with left-sided weakness is slowly improving not quite to a point that he could be independent he denies any headache nausea vomiting chest pain or shortness of breath fever chills sore throat Review of Systems Review of Systems: All systems reviewed & are unremarkable except as noted in HPI and below Functional Status Ambulation Ability Ability to Ambulate 10 Feet: Moderate Assistance X 1 Ambulation Assistive Devices: Railings Transfers Ability Ability to Transfer In/Out of Chair: Maximum Assistance X 2 Exam Const: General: comfortable and no acute distress HENMT: General nose exam: Normal nares present Mouth: Yes moist mucous membranes Eyes: General: appearance normal, both eyes and all related structures Neck: Neck: supple and no JVD Resp: Effort & Inspection: normal respiratory effort Auscultation: clear to auscultation bilaterally Cardio: Rate: regular rate Rhythm: regular rhythm GI: GI Palp: Yes Soft to palpation Auscultation: normal bowel sounds Skin: General skin exam: normal color and no rashes or lesions noted Neuro: Other: patient is awake and alert well oriented in good spirits making very slow progress from the effect of the stroke with left hemiparesis which is still moderately severe leg is less involved than the left upper extremity Extrem: General: normal to inspection Psych: Mental Status: mental status grossly normal Objective Data Vital Signs Vital Signs: Vital Signs - 24 hr 02/05/20 20:00 02/05/20 21:25 02/06/20 05:16 Temperature 37.4 C 36.1 C L Pulse Rate 73 73 59 L Respiratory Rate 14 14 14 Blood Pressure 145/64 H 116/63 Pulse Oximetry 99 99 99 Intake/Output Intake/Output: Intake & Output 02/03/20 02/04/20 02/05/20 02/06/20 23:59 23:59 23:59 23:59 Intake Total 720 1200 720 240 Balance 720 1200 720 240 Meds/Results Medications: Active Medications Generic Name Dose Route Start Last Admin Trade Name Freq PRN Reason Stop Dose Admin Acetaminophen 650 mg 01/16/20 14:42 02/04/20 20:50 Tylenol Tablet PO 650 mg Q6H PRN Administration Pain 1-3 Hydrocodone Bitart/Acetaminophen 1 tab 01/16/20 14:42 02/03/20 22:13 [place] 5-325 Mg PO 1 tab Q6H PRN Administration Pain, Moderate Apixaban 5 mg 01/20/20 09:00 02/06/20 09:15 Eliquis PO 5 mg BID ARSENIO Administration Atorvastatin Calcium 40 mg 01/16/20 21:00 02/05/20 21:21 Lipitor PO 40 mg HS ARSENIO Administration Bisacodyl 10 mg 01/23/20 11:38 Dulcolax Suppository RECTAL QAM PRN Constipation Buspirone HCl 5 mg 01/16/20 17:00 02/06/20 09:15 Buspar PO 5 mg BID ARSENIO Administration Diltiazem HCl 120 mg 01/17/20 09:00 02/06/20 09:15 Cardizem Cd PO 120 mg DAILY ARSENIO Administration Docusate Sodium 100 mg 01/23/20 21:00 02/06/20 09:15 Colace Capsule PO 100 mg Q12HR ARSENIO Administration Finasteride 5 mg 01/17/20 09:00 02/06/20 09:16 Proscar PO 5 mg DAILY ARSENIO Administration Lactulose 30 gm 01/22/20 13:28 02/02/20 08:30 Lactulose PO 30 gm QAM PRN Administration Constipation Melatonin 5 mg 01/19/20 21:00 02/05/20 21:21 Melatonin PO 5 mg HS ARSENIO Administration Menthol/Methyl Salicylate 1 applic 01/25/20 00:48 01/25/20 06:54 [place] Pain Relieving Cream TOPICAL 1 applic BID PRN Administration Muscle/Joint Pain Ondansetron HCl 4 mg 01/16/20 14:45 01/31/20 18:36 Zofran Odt PO 4 mg Q6H PRN Administration Nausea And Vomiting Polyethylene Glycol 17 gm 01/19/20 09:00 02/06/20 09:16 Miralax PO 17 gm QAM ARSENIO Administration Radiology Results: ITS Impressions Abdomen X-Ray 01/23/20 13:36 IMPRESSION: 1. Distended rectum containing stool. Progress Note: A&P Assessment and Plan (1) S/P left atrial appendage ligation: Code(s): Z98.890 - Oth
[2020-02-06 20:00] VITALS: PULSE 70; RESP 20; O2SAT 96
[2020-02-06] MEDS: ATORVASTATIN 40 MG TABLET PO (20:37)
[2020-02-06] MEDS: MELATONIN 5 MG TABLET PO (20:38)
[2020-02-06] MEDS: HYDROcodone/acetaminophen (*CRX) 5-325 MG TABLET 1 TAB PO (20:40)
[2020-02-06 22:00] VITALS: BP 146/86; PULSE 73; RESP 18; TEMP 37; O2SAT 96
[2020-02-06 23:26] VITALS: O2SAT 98
[2020-02-07 05:50] LABS: Basophils Percent Auto 0.5 % (0.2-1.2); Eosinophils Absolute Auto 0.4 K/mm3 (0-0.3); Hematocrit 41.1 % (42.0-52.0); Hemoglobin 13.8 g/dL (14.0-18.0); Immature Granulocyte Absolute 0.01 K/mm3 (0.00-0.031); Immature Granulocyte Percent A 0.2 % (0-0.5); Lymphocytes Absolute Auto 2.57 K/mm3 (0.9-3.2); Lymphocytes Percent Auto 40.9 % (18.3-44.2); Mean Corpuscular HGB Conc 33.6 g/dl (32-36); Mean Corpuscular Hemoglobin 31.3 pg (26-34); Mean Corpuscular Volume 93.2 fl (80-100); Mean Platelet Volume 12.2 fl (7.4-10.4); Monocytes Absolute Auto 0.8 K/mm3 (0.1-0.6); Monocytes Percent Auto 12.4 % (2.6-8.5); Neutrophils Absolute Auto 2.5 K/mm3 (1.3-6.7); Platelet Count Result 155 k/mm3 (150-375); Red Blood Count 4.41 M/mm3 (4.6-6.20); Red Cell Distribution Width 12.9 % (11.5-14.5); White Blood Count 6.3 K/mm3 (4.5-10.0)
[2020-02-07 06:00] VITALS: BP 111/72; PULSE 64; RESP 20; TEMP 36.4; O2SAT 99
[2020-02-07 06:16] LABS: Anion Gap 4 mmol/L (8-16); Blood Urea Nitrogen 17 mg/dL (9-20); Calcium 9.2 mg/dL (8.4-10.2); Carbon Dioxide 34 mmol/L (22-30); Chloride 104 mmol/L (98-107); Estimated CRCL calculation 66 ml/min; Estimated Glomerular Filt Rate > 60; Glucose 102 mg/dL (75-110); Potassium 3.8 mmol/L (3.4-5.0); Sodium 142 mmol/L (137-145)
[2020-02-07] MEDS: FINASTERIDE 5 MG TABLET PO (08:32)
[2020-02-07] MEDS: busPIRone HCL 5 MG TABLET PO ×2 (08:32→16:58)
[2020-02-07] MEDS: polyethylene glycoL 3350 17 GM POWD.PACK PO (08:32)
[2020-02-07] MEDS: APIXABAN 5 MG TABLET PO ×2 (08:32→16:59)
[2020-02-07] MEDS: DOCUSATE SODIUM 100 MG CAPSULE PO ×2 (08:32→20:49)
--- NOTE | 2020-02-07 11:57 | WPDNEURORHBP ---
Subjective Date/time seen: 02/07/20 11:57 Interval history: this 79-year-old gentleman is here with the stroke and the left-sided moderately severe hemiparesis he is improving however rather slowly he denies any headache nausea vomiting chest pain shortness of breath fever chills sore throat he is slated to be discharged to a shelter facility tomorrow I am told that the facility does not require any COVID testing as long as the patient is free of any respiratory symptoms and he is free of any respiratory system and I think suggest any pulmonary illness Review of Systems Review of Systems: All systems reviewed & are unremarkable except as noted in HPI and below Functional Status Ambulation Ability Ability to Ambulate 10 Feet: Moderate Assistance X 1 Ambulation Assistive Devices: Railings Transfers Ability Ability to Transfer In/Out of Chair: Maximum Assistance X 2 Exam Narrative: Exam Narrative: the patient remains awake and alert and well oriented than left-sided neglect has improved left-sided hemiparesis improving he has not only in normal speech and language functions and her relatively normal eye examination supple neck chest is clear abdomen is nontender extremities reveals no deformities skin examination is negative abdominal examination negative cardiovascular examination is negative pulmonary examination is negative Objective Data Vital Signs Vital Signs: Vital Signs - 24 hr 02/06/20 14:00 02/06/20 20:00 02/06/20 22:00 Temperature 37.0 C 37.0 C Pulse Rate 70 70 73 Respiratory Rate 20 20 18 Blood Pressure 113/96 H 146/86 H Pulse Oximetry 96 96 96 02/06/20 23:26 02/07/20 06:00 Temperature 36.4 C L Pulse Rate 64 Respiratory Rate 20 Blood Pressure 111/72 Pulse Oximetry 98 99 Intake/Output Intake/Output: Intake & Output 02/04/20 02/05/20 02/06/20 02/07/20 23:59 23:59 23:59 23:59 Intake Total 1200 720 720 240 Balance 1200 720 720 240 Meds/Results Medications: Active Medications Generic Name Dose Route Start Last Admin Trade Name Freq PRN Reason Stop Dose Admin Acetaminophen 650 mg 01/16/20 14:42 02/04/20 20:50 Tylenol Tablet PO 650 mg Q6H PRN Administration Pain 1-3 Hydrocodone Bitart/Acetaminophen 1 tab 01/16/20 14:42 02/06/20 20:40 [place] 5-325 Mg PO 1 tab Q6H PRN Administration Pain, Moderate Apixaban 5 mg 01/20/20 09:00 02/07/20 08:32 Eliquis PO 5 mg BID ARSENIO Administration Atorvastatin Calcium 40 mg 01/16/20 21:00 02/06/20 20:37 Lipitor PO 40 mg HS ARSENIO Administration Bisacodyl 10 mg 01/23/20 11:38 Dulcolax Suppository RECTAL QAM PRN Constipation Buspirone HCl 5 mg 01/16/20 17:00 02/07/20 08:32 Buspar PO 5 mg BID ARSENIO Administration Diltiazem HCl 120 mg 01/17/20 09:00 02/07/20 08:32 Cardizem Cd PO 120 mg DAILY ARSENIO Administration Docusate Sodium 100 mg 01/23/20 21:00 02/07/20 08:32 Colace Capsule PO 100 mg Q12HR ARSENIO Administration Finasteride 5 mg 01/17/20 09:00 02/07/20 08:32 Proscar PO 5 mg DAILY ARSENIO Administration Lactulose 30 gm 01/22/20 13:28 02/02/20 08:30 Lactulose PO 30 gm QAM PRN Administration Constipation Melatonin 5 mg 01/19/20 21:00 02/06/20 20:38 Melatonin PO 5 mg HS ARSENIO Administration Menthol/Methyl Salicylate 1 applic 01/25/20 00:48 01/25/20 06:54 [place] Pain Relieving Cream TOPICAL 1 applic BID PRN Administration Muscle/Joint Pain Ondansetron HCl 4 mg 01/16/20 14:45 01/31/20 18:36 Zofran Odt PO 4 mg Q6H PRN Administration Nausea And Vomiting Polyethylene Glycol 17 gm 01/19/20 09:00 02/07/20 08:32 Miralax PO 17 gm QAM ARSENIO Administration Radiology Results: ITS Impressions Abdomen X-Ray 01/23/20 13:36 IMPRESSION: 1. Distended rectum containing stool. Labs Labs: Laboratory Results - last 24 hr 02/07/20 02/07/20 05:03 05:03 WBC 6.3 RBC 4
[2020-02-07 14:00] VITALS: BP 125/73; PULSE 78; RESP 20; TEMP 36.8; O2SAT 95
[2020-02-07] MEDS: ATORVASTATIN 40 MG TABLET PO (20:49)
[2020-02-07] MEDS: MELATONIN 5 MG TABLET PO (20:50)
[2020-02-07] MEDS: ACETAMINOPHEN 325 MG TABLET 650 MG PO (20:53)
[2020-02-07 22:00] VITALS: BP 125/75; PULSE 66; RESP 20; TEMP 36.3; O2SAT 97
[2020-02-08 06:00] VITALS: BP 134/75; PULSE 69; RESP 20; TEMP 36.7; O2SAT 100
[2020-02-08] MEDS: FINASTERIDE 5 MG TABLET PO (09:08)
[2020-02-08] MEDS: DOCUSATE SODIUM 100 MG CAPSULE PO (09:08)
[2020-02-08] MEDS: polyethylene glycoL 3350 17 GM POWD.PACK PO (09:08)
[2020-02-08] MEDS: APIXABAN 5 MG TABLET PO ×2 (09:08→17:12)
[2020-02-08] MEDS: busPIRone HCL 5 MG TABLET PO ×2 (09:08→17:13)
--- NOTE | 2020-02-08 12:30 | WPDNEURORHBP ---
Subjective Date/time seen: 02/08/20 12:30 Interval history: This 79-year-old gentleman is here after having a stroke which had moderately severe left-sided hemiparesis his going to be discharged today to the care home facility for continuation of the therapy as as he has not been independent or near independent yet he denies any headache nausea vomiting chest pain or shortness of breath fever chills sore throat Review of Systems Review of Systems: All systems reviewed & are unremarkable except as noted in HPI and below Functional Status Ambulation Ability Ability to Ambulate 10 Feet: Moderate Assistance X 1 Ambulation Assistive Devices: Railings Transfers Ability Ability to Transfer In/Out of Chair: Maximum Assistance X 2 Exam Narrative: Exam Narrative: patient is awake alert will oriented in time place person his speech and language functions are normal cranial examination is fairly decent moderately severe left-sided hemiparesis is present needing assistance all the activities of daily living however it is it has improved Const: General: cooperative, no acute distress and well developed HENMT: Head: normal to inspection, normocephalic and atraumatic Ears: hearing grossly normal bilaterally Eyes: General: appearance normal, both eyes and all related structures Neck: Neck: normal visual inspection, full ROM and no lymphadenopathy Chest: Chest palpation & inspection: normal inspection of the chest and normal palpation of entire chest wall Resp: Effort & Inspection: normal respiratory effort and able to speak in complete sentences Cardio: Jugular venous distension: no JVD and JVD GI: Inspection: normal to inspection GI Palp: Yes No hepatosplenomegaly present Back/Spine/Pelvis: Back: no CVA tenderness Skin: General skin exam: normal color and no rashes or lesions noted Neuro: Other: patient's neurological examination reveals moderately severe left-sided hemiparesis needing assistance all the activities of daily living with the brisk reflex on that side and positive Babinski Extrem: General: normal to inspection Objective Data Vital Signs Vital Signs: Vital Signs - 24 hr 02/07/20 14:00 02/07/20 22:00 02/08/20 06:00 Temperature 36.8 C 36.3 C L 36.7 C Pulse Rate 78 66 69 Respiratory Rate 20 20 20 Blood Pressure 125/73 125/75 134/75 Pulse Oximetry 95 97 100 Intake/Output Intake/Output: Intake & Output 02/05/20 02/06/20 02/07/20 02/08/20 23:59 23:59 23:59 23:59 Intake Total 720 720 580 240 Balance 720 720 580 240 Meds/Results Medications: Active Medications Generic Name Dose Route Start Last Admin Trade Name Freq PRN Reason Stop Dose Admin Acetaminophen 650 mg 01/16/20 14:42 02/07/20 20:53 Acetaminophen 325 Mg Tablet PO 650 mg Q6H PRN Administration Pain 1-3 Hydrocodone Bitart/Acetaminophen 1 tab 01/16/20 14:42 02/06/20 20:40 [place] 5-325 Mg PO 1 tab Q6H PRN Administration Pain, Moderate Apixaban 5 mg 01/20/20 09:00 02/08/20 09:08 Eliquis PO 5 mg BID ARSENIO Administration Atorvastatin Calcium 40 mg 01/16/20 21:00 02/07/20 20:49 Lipitor PO 40 mg HS ARSENIO Administration Bisacodyl 10 mg 01/23/20 11:38 Dulcolax Suppository RECTAL QAM PRN Constipation Buspirone HCl 5 mg 01/16/20 17:00 02/08/20 09:08 Buspar PO 5 mg BID ARSENIO Administration Diltiazem HCl 120 mg 01/17/20 09:00 02/08/20 09:08 Cardizem Cd PO 120 mg DAILY ARSENIO Administration Docusate Sodium 100 mg 01/23/20 21:00 02/08/20 09:08 Colace Capsule PO 100 mg Q12HR ARSENIO Administration Finasteride 5 mg 01/17/20 09:00 02/08/20 09:08 Proscar PO 5 mg DAILY ARSENIO Administration Lactulose 30 gm 01/22/20 13:28 02/02/20 08:30 Lactulose PO 30 gm QAM PRN Administration Constipation Melatonin 5 mg 01/19/20 21:00 02/07/20 20:50 Melatonin PO 5 mg HS ARSENIO Administration Menthol/Methyl Salicylate 1 applic
[2020-02-08 14:00] VITALS: BP 140/92; PULSE 71; RESP 20; TEMP 36.7; O2SAT 97
--- NOTE | 2020-02-12 14:41 | PM.DS ---
DS: Admitting Diagnosis Admitting Diagnosis Admitting Diagnosis: CVA DS: Discharge Diagnosis Discharge Diagnosis (1) S/P left atrial appendage ligation: Code(s): Z98.890 - Other specified postprocedural states Status: Acute (2) S/P AVR: Code(s): Z95.2 - Presence of prosthetic heart valve Status: Acute (3) Atrial fibrillation: Code(s): I48.91 - Unspecified atrial fibrillation Status: Acute (4) Left hemiparesis: Code(s): G81.94 - Hemiplegia, unspecified affecting left nondominant side Status: Acute (5) Stroke: Code(s): I63.9 - Cerebral infarction, unspecified Status: Acute DS: Summary Hospital Course Reason for hospitalization: patient was admitted because of the multiple medical issues the primary reason was the stroke with left hemiparesis he received the physical therapy of compression therapy and gait training and was able to achieve the following independent measures Hospital Course: eating independent, oral hygiene independent, toileting setup, bathing partial assistance, upper body dressing partial assistance, lower body dressing substantial, footwear partial assistance, rolling in bed partial assistance, sitting to lying partial assistance, lying to sitting partial assistance, sit to stand partial stents, chair transfers partial assistance, toilet transfers partial assistance, car transfers partial assistance, walking 10 feet dependent, walking 50 feet with 2 turns patient was unable to walking 150 feet walking 10 feet uneven surfaces [place] step 4 steps 12 steps and picking up objects patient unable to Wheelchair 50 feet independent wheelchair and 50 feet independent Time Spent with Patient Time attestation: Total time spent providing and/or coordinating discharge services: Exam Narrative: Exam Narrative: patient is awake alert oriented x3 with mild short-term deficit decrease significant hearing and moderately severe left-sided hemiparesis needing assistance in the activities of daily living [place] no 3rd normal head normocephalic lungs are clear cardiovascular exam is stable abdomen soft not tender extremities reveal no deformities Discharge Plan Discharge Attending physician on discharge: Irvin Contreras Discharging Clinician: Irvin Contreras Anticipated Discharge Date/Time: 02/08/20 12:34 Patient Disposition: SNF Activity: may shower and no driving Diet: as tolerated Patient Instructions: Apixaban (By mouth), Ischemic Stroke (GEN) Stand Alone Forms: General Discharge Information Follow-up/Referrals: Dr. Travis Cardenas MD [Other] (Follow-up appointment on July 01, 2020 at 10:30 AM) Stroke Clinic [Other] ([facility] Follow-up appointment (option #3, specialty care clinic). They may call you for appointment, if not call them.) Discharge Medications: New bisacodyl 10 mg Suppository 10 mg ND QAM PRN (Reason: Constipation) Qty: 12 RF: 0 docusate sodium 100 mg Capsule 100 mg PO Q12HR Qty: 90 RF: 0 melatonin 5 mg Tablet 5 mg PO HS Qty: 90 RF: 0 polyethylene glycol 3350 [Miralax] 17 gram Powder In Packet 17 g PO QAM Qty: 0 RF: 0 Continued atorvastatin 40 mg Tablet 40 mg PO HS RF: 0 buspirone 5 mg Tablet 5 mg PO BID RF: 0 acetaminophen 325 mg Tablet 650 mg PO Q6H PRN (Reason: Pain) RF: 0 diltiazem HCl 120 mg Capsule,Extended Release 24hr 120 mg PO DAILY RF: 0 finasteride 5 mg Tablet 5 mg PO DAILY RF: 0 apixaban 5 mg Tablet 5 mg PO BID RF: 0 hydrocodone-acetaminophen 5-325 mg Tablet 1 tablet PO Q6H PRN (Reason: Pain, Moderate) Qty: 45 RF: 0 Discontinued aspirin 325 mg Tablet 325 mg PO DAILY RF: 0 Date of admission: 01/16/20 13:25 Primary Care Provider: Reji,Celso Fagan Admitting Provider: Irvin Contreras Interventions: Discharge Disposition Last Done: 02/08/20 19:12 Attending physician on admission: Irvin Contreras
== END 2020-02-08 18:15 | DRG 57 ==
PROVIDERS: Admitting Provider Psychiatry & Neurology Neurology; PCP Family Medicine; Visit Provider Psychiatry & Neurology Neurology
DX: I69.354 Hemiplegia and hemiparesis following cerebral infarction affecting left non-dominant side (principal); I69.392 Facial weakness following cerebral infarction; I69.311 Memory deficit following cerebral infarction; I69.398 Other sequelae of cerebral infarction; H53.40 Unspecified visual field defects; K59.00 Constipation, unspecified; G43.909 Migraine, unspecified, not intractable, without status migrainosus; H90.5 Unspecified sensorineural hearing loss; I48.91 Unspecified atrial fibrillation; I50.9 Heart failure, unspecified; I11.0 Hypertensive heart disease with heart failure; I35.1 Nonrheumatic aortic (valve) insufficiency; M19.90 Unspecified osteoarthritis, unspecified site; N40.0 Benign prostatic hyperplasia without lower urinary tract symptoms; Z79.01 Long term (current) use of anticoagulants; Z86.711 Personal history of pulmonary embolism; Z86.718 Personal history of other venous thrombosis and embolism; Z96.653 Presence of artificial knee joint, bilateral; Z95.2 Presence of prosthetic heart valve; Z95.818 Presence of other cardiac implants and grafts
CPT/HCPCS: 36415; 74018; 80048; 80061; 81001; 85025; 92507; 92523; 97110; 97112; 97116; 97129; 97130; 97163; 97167; 97530; 97535; 97542; A9270